=== PATIENT | female | born 1960 | race Caucasian/White ===

== ENCOUNTER 2019-09-07 08:51 | Emergency (ER) | payer OTHER ==
[~2019-09-07] VITALS: Ht 175.3 cm; Wt 61.2 kg
--- OUTSIDE RECORDS SUMMARY | ~2019-09-07 | XMS | Clinical Summary ---
Demographics + + + | Address | [address] | | | [place] [address] | + + + | Home Phone | | + + + | Preferred Language | Unknown | + + + | Marital Status | | + + + | Temple Affiliation | Unknown | + + + | Race | Unknown | + + + | Ethnic Group | Unknown | + + + Author + + + | Author | [facility] | | | and [place] | + + + | Organization | [facility] | | | and [place] | + + + | Address | Unknown | + + + | Phone | Unavailable | + + + Support + + +---------+ + | Name | Relationship | Address | Phone | + + +---------+ + | Nitesh Chilel | ECON | Unknown | | + + +---------+ + | Chelsea Chan | ECON | Unknown | | + + +---------+ + | Corina Loucontreras | ECON | Unknown | | + + +---------+ + | Slim Delong | ECON | Unknown | | + + +---------+ + Care Team Providers + +------+ + | Care Product Safety Expert Name | Role | Phone | + +------+ + | Yasmin Perry MD | PCP | | + +------+ + Allergies + + + +--------+ + | Active Allergy | Reactions | Severity | Noted | Comments | | | | | Date | | + + + +--------+ + | Hydrocodone-Acetamin | | | | Other reaction(s): | | ophen | | | | constipation, | | | | | | nausea | + + + +--------+ + | Morphine | | | | Other reaction(s): | | | | | | nausea, | | | | | | constipation | + + + +--------+ + | Topiramate | | | | Other reaction(s): | | | | | | insomnia, weight | | | | | | loss | + + + +--------+ + Medications + + + +---------+------+------+-------+ | Medication | Sig | Dispensed | Refills | Star | End | Statu | | | | | | t | Date | s | | | | | | Date | | | + + + +---------+------+------+-------+ | traZODone | Take 50 mg by mouth | | 0 | 09/1 | | Activ | | (DESYREL) 50 mg | nightly. | | | 3/20 | | e | | tablet | | | | 12 | | | + + + +---------+------+------+-------+ | | Take 1 to 2 tablets | | 0 | 09/1 | | Activ | | HYDROcodone-acetamin | by mouth every 4 | | | 3/20 | | e | | ophen (NORCO) 5-325 | hours as needed for | | | 12 | | | | mg per tablet | pain | | | | | | + + + +---------+------+------+-------+ | cyclobenzaprine | Take 10 mg by mouth | | 0 | 06/08 | | Activ | | (FLEXERIL) 10 mg | every 8 hours as | | | 12/25 | | e | | tablet | needed. | | | 12 | | | + + + +---------+------+------+-------+ | Calcium | Take by mouth. | | 0 | /0 | | Activ | | Carbonate-Vit D-Min | | | | 03/27 | | e | | (CALCIUM 1200 PO) | | | | 13 | | | + + + +---------+------+------+-------+ | levothyroxine | take 1 tablet by | | 0 | 07/08 | | Activ | | (SYNTHROID) 100 mcg | mouth once daily | | | 05/27 | | e | | tablet | | | | 17 | | | + + + +---------+------+------+-------+ | | take 1 tablet by | | 0 | 09/09 | | Activ | | sulfamethoxazole-tri | mouth twice a day | | | 10/27 | | e | | methoprim (BACTRIM | | | | 17 | | | | DS) 800-160 mg per | | | | | | | | tablet | | | | | | | + + + +---------+------+------+-------+ Active Problems + + + | Problem | Noted Date | + + + | Chronic pelvic pain in female | 03/13/2013 | + + + | Hypothyroid | 03/13/2013 | + + + | Primary hypothyroidism | 08/01/2012 | + + + + + | Overview: Overview: Primary hypothyroidism. Most likely | | Daphne's thyroiditis. This was first diagnosed in 08/15. | | Initial symptoms included fatigue. Results of initial laboratory | | tests are not known. A thyroid ultrasound demonstrated | | heterogeneous normal sized gland and no identifiable nodule in | | 11/2009. She is currently taking Synthroid 75 mcg daily. She has | | taken this dosage since 07/22/09. She takes this thyroid | | medication regularly, in the morning, around 6 AM, on empty | | stomach, separate from other interfering medications.She reports | | no symptoms suggestive of adverse medication effect. She is | | currently asymptomatic. Primary hypothyroidism. Daphne's | | thyroiditis. Clinically euthyroid. Appropriate TSH as of | | 07/25/12 (2.58). MEDICATIONS: Continue current treatment. FU | | PCP and return as needed | |FU PCP and return as needed | + + + + + | Vitamin D deficiency | 08/01/2012 | + + + + + | Overview: Overview: This was first diagnosed in 07/16. She | | was given vitamin D 50,000 IU weekly x 4 weeks then vitamin D | | 2000 IU daily in 07/2009. Current medications include vitamin D | | 2000 units daily. She has occasional leg cramps. She is now off | | many pain pills and is trying to exercise regularly.She has | | experienced no treatment side effects. The levels are low normal | | (33 as of 07/25/12). I suggest ~ 50 ng/dLMEDICATIONS: Increase | | vitamin D to 5000 units daily throughout the winter then, again | | decreased to 2000 units daily in February 2013, for the | | summertime.Plan to followup with PCP for vitamin D/hypothyroidism | |Plan to followup with PCP for vitamin D/hypothyroidism | + + + + + | Incontinence | 05/23/2012 | + + + | Insomnia | | + + + | Irritable bowel syndrome | | + + + Family History + + +------+ + | Medical History | Relation | Name | Comments | + + +------+ + | Cancer | Father | | Lung | + + +------+ + | Cancer | Paternal | | | | | Aunt | | | + + +------+ + + +------+--------+ + | Relation | Name | Status | Comments | + +------+--------+ + | Father | | | | + +------+--------+ + | Paternal Aunt | | | | + +------+--------+ + Social History + +-------+ +--------+------+ | Tobacco Use | Types | Packs/Day | Years | Date | | | | | Used | | + +-------+ +--------+------+ | Never Smoker | | | | | + +-------+ +--------+------+ + +---+---+---+ | Smokeless Tobacco: | | | | | Never Used | | | | + +---+---+---+ + + + | Sex Assigned at | Date Recorded | | | | + + + | Not on file | | + + + + + + + | Job Start Date | Occupation | Industry | + + + + | Not on file | Not on file | Not on file | + + + + + + + + | Travel History | Travel Start | Travel End | + + + + + + | No recent travel history available. | + + Last Filed Vital Signs + + + + + | Vital Sign | Reading | Time Taken | Comments | + + + + + | Blood Pressure | 90/58 | 11/08/2017 1:53 PM | | | | | PST | | + + + + + | Pulse | 71 | 11/08/2017 1:53 PM | | | | | PST | | + + + + + | Temperature | 36.7 C (98.1 F) | 03/09/2014 3:13 PM | | | | | PDT | | + + + + + | Respiratory Rate | 16 | 11/08/2017 1:53 PM | | | | | PST | | + + + + + | Oxygen Saturation | 99% | 11/08/2017 1:53 PM | | | | | PST | | + + + + + | Inhaled Oxygen | - | - | | | Concentration | | | | + + + + + | Weight | 63.5 kg (140 lb) | 11/08/2017 1:53 PM | | | | | PST | | + + + + + | Height | 175.3 cm (5' 9") | 11/08/2017 1:53 PM | | | | | PST | | + + + + + | Body Mass Index | 20.67 | 11/08/2017 1:53 PM | | | | | PST | | + + + + + Plan of Treatment + + + + + | Health Maintenance | Due Date | Last Done | Comments | + + + + + | Hepatitis C | | | | | Screening | 0 | | | + + + + + | Vaccine: | | | | | Dtap/Tdap/Td (1 - | 9 | | | | Tdap) | | | | + + + + + | Cervical Cancer | | | | | Screening (Pap) | 0 | | | + + + + + | Colorectal Cancer | | | | | Screening | 0 | | | | (Colonoscopy) | | | | + + + + + | Vaccine: Zoster (1 | | | | | of 2) | 0 | | | + + + + + | Breast Cancer | | | | | Screening | 5 | | | + + + + + | Vaccine: Influenza | | | | | (#1) | 9 | | | + + + + + Results Not on filefrom Last 3 Months Insurance +-------+--------+ +--------+ + +------+ | Payer | Benefi | Subscriber | Effect | Phone | Address | Type | | | t Plan | ID | roseann | | | | | | / | | Dates | | | | | | Group | | | | | | +-------+--------+ +--------+ + +------+ | MODA | MODA | [id number] | 10/08/19 | [phone] | [address] | PPO | | | [place] | | 14-Pre | [phone] | | | | [place] | | sent | | [place], | | | | [place] | | | | [place] [address] | | +-------+--------+ +--------+ + +------+ | MODA | MODA | [id number] | | [phone] | [address] | PPO | | | [employer] | | 019-Pr | [phone] | [phone] | | | | [place] | | esent | | [place], | | | | [place] | | | | [place] [address] | | +-------+--------+ +--------+ + +------+ + +--------+ +--------+ + + | Guarantor Name | Accoun | Relation to | Date | Phone | Billing Address | | | t Type | Patient | of | | | | | | | | | | + +--------+ +--------+ + + | Olesya Chilel | Person | Self [birth year] | [address] | | | al/Fam | | 1961 | [phone] | [place] [address] | | | sunday | | | 1 (Home) | | + +--------+ +--------+ + + | Olesya Chilel | Person | Self [birth year] | [address] | | | al/Fam | | 1961 | [phone] | [place] [address] | | | sunday | | | 1 (Home) | | + +--------+ +--------+ + + Advance Directives + + + + + | Type | Date Recorded | Patient | Explanation | | | | Ergonomics Technician | | + + + + + | Power of | | | | | Procurement Intern | | | | + + + + + | Advance | | | | | Directive | | | | + + + + +
--- OUTSIDE RECORDS SUMMARY | ~2019-09-07 | XMS | Encounter Summary ---
Demographics + + + | Address | [address] | | | [place] [address] | + + + | Home Phone | | + + + | Preferred Language | Unknown | + + + | Marital Status | | + + + | Mandaeism Affiliation | Unknown | + + + | Race | Unknown | + + + | Ethnic Group | Unknown | + + + Author + + + | Author | and Services [facility] | | | and [place] | + + + | Organization | and [facility] | | | and [place] | [...] | + + +---------+ + | Corina Loaiza | ECON | Unknown | | + + +---------+ + | Slim Delong | ECON | Unknown | | + + +---------+ + Care Team Providers + +------+ + | Care Assessment Coordinator Name | Role | Phone | + +------+ + | Agapito Clemente MD | PCP | | + +------+ + Encounter Details +--------+ + + + + | Date | Type | Department | Care Team | Description | +--------+ + + + + | 11/11/ | Hospital | [facility] | [place] | | | 2014 | Encounter | H[facility] XRAY [address] | [address] | | | | | [address] | [facility] [facility], | | | | | [place] | [place] [address] | | | | | [address] | [phone] | | | | | [phone] | | | +--------+ + + + + Social History + +-------+ +--------+------+ | Tobacco Use | Types | Packs/Day | Years | Date | | | | | Used | | + +-------+ +--------+------+ | Never Assessed | | | | | + +-------+ +--------+------+ + + + | Sex Assigned at [...] recent travel history available. | + + documented as of this encounter Medications at Time of Discharge + + + +---------+ + + | Medication | Sig | Dispensed | Refills | Start | End Date | | | | | | Date | | + + + +---------+ + + | Calcium | Take by mouth. | | 0 | 03/13/20 | | | Carbonate-Vit D-Min | | | | 13 | | | (CALCIUM 1200 PO) | | | | | | + + + +---------+ + + | cyclobenzaprine | Take 10 mg by mouth | | 0 | 06/20/20 | | | (FLEXERIL) 10 mg | every 8 hours as | | | 12 | | | tablet | needed. | | | | | + + + +---------+ + + | | Take 1 to 2 tablets | | 0 | 06/20/20 | | | HYDROcodone-acetamin | by mouth every 4 | | | 12 | | | ophen (NORCO) 5-325 | hours as needed for | | | | | | mg per tablet | pain | | | | | + + + +---------+ + + | traZODone | Take 50 mg by mouth | | 0 | 06/20/20 | | | (DESYREL) 50 mg | nightly. | | | 12 | | | tablet | | | | | | + + + +---------+ + + documented as of this encounter Plan of Treatment Not on filedocumented as of this encounter Visit Diagnoses Not on filedocumented in this encounter"
--- OUTSIDE RECORDS SUMMARY | ~2019-09-07 | XMS | Encounter Summary ---
Demographics + + + | Address | [address] | | | [place] [address] | + + + | Home Phone | | + + + | Preferred Language | Unknown | + + + | Marital Status | | + + + | Anglican Affiliation | Unknown | + + + | Race | Unknown | + + + | Ethnic Group | Unknown | + + + Author + + + | Author | [facility] | | | and [place] | + + + | Organization | [facility] | | | and [place] | [...] Team Providers + +------+ + | Care Watch Crystal Molder Name | Role | Phone | + +------+ + | Agapito Clemente MD | PCP | | + +------+ + Reason for Visit + + + | Reason | Comments | + + + | Appointment | | + + + Encounter Details +--------+ + + + + | Date | Type | Department | Care Team | Description | +--------+ + + + + | 11/14/ | Telephone | [facility] | Eb Garcias MD | Appointment | | 2013 | | NEUR[address]UR[address]ERY [address] | [address] | | | | | [address] | [place] [address] | | | | | [place] | [phone] | | | | | [address] | | | | | | [phone] | | | +--------+ + + + [...]
--- OUTSIDE RECORDS SUMMARY | ~2019-09-07 | XMS | Clinical Summary ---
Demographics + + + | Address | [address] | | | [place] [address] | + + + | Home Phone | | + + + | Preferred Language | Unknown | + + + | Marital Status | | + + + | Denominational Affiliation | Unknown | + + + | Race | Unknown | + + + | Ethnic Group | Unknown | + + + Author + + + | Author | [facility] (Historical as of | | | 05-24-19) | + + + | Organization | [facility] (Historical as of | | | 05-24-19) | + + + | Address | Unknown | + + + | Phone | Unavailable | + + + Support + + + + + | Name | Relationship | Address | Phone | + + + + + | Claudio Chilel | ECON | [address] | | | | | [place], [place] | | | | | [address] | | + + + + + Care Team Providers + +------+ + | Care Seal Delivery Vehicle Officer Name | Role | Phone | + +------+ + | Dr. Marvin | PP | Unavailable | + +------+ + Allergies Not on File Current Medications Not on file Active Problems Not on file Social History + +-------+ +--------+------+ | Tobacco [...] on file | | + + + Plan of Treatment Not on file Results Not on filefrom Last 3 Months"
--- OUTSIDE RECORDS SUMMARY | ~2019-09-07 | XMS | Encounter Summary ---
Demographics + + + | Address | [address] | | | [place] [address] | + + + | Home Phone | | + + + | Preferred Language | Unknown | + + + | Marital Status | | + + + | Muslim Affiliation | Unknown | + + + | Race | White | + + + | Ethnic Group | Not or | + + + Author + + + | Author | [facility] | + + + | Organization | [facility] | + + + | Address | Unknown | + + + | Phone | Unavailable | + + + Support + + + + + | Name | Relationship | Address | Phone | + + + + + | Nitesh Chilel | ECON | [address] | | | | | [place], [place] | | | | | [address] | | + + + + + Care Team Providers + +------+ + | Care Human Resources Intern Name | Role | Phone | + +------+ + | Yasmin Perry MD | PCP | | + +------+ + Encounter Details +--------+ + + + + | Date | Type | Department | Care Team | Description | +--------+ + + + + | 01/25/ | Outside | UNKNOWN DEPARTMENT | Other, Faculty | | | 2016 | Records | [address] [facility] | [phone] | | | | | [address] | | | | | | [place], [place] | | | | | | [address] | | | +--------+ + + + [...]
--- OUTSIDE RECORDS SUMMARY | ~2019-09-07 | XMS | Encounter Summary ---
Demographics + + + | Address | [address] | | | [place] [address] | + + + | Home Phone | | + + + | Preferred Language | Unknown | + + + | Marital Status | | + + + | Adventism Affiliation | Unknown | + + + | Race | Unknown | + + + | Ethnic Group | Unknown | + + + Author + + + | Author | [facility] | | | and [place] | + + + | Organization | [facility] | | | and [place] [...] Team Providers + +------+ + | Care Director Style Name | Role | Phone | + [...] Encounter | HOSPITAL XRAY [address] | [address] | | | | | [address] | [facility], | | | | | [place] | [place] [address] | | | | | [address] | [phone] | | | | | [phone] | | | +--------+ + + + [...]
--- OUTSIDE RECORDS SUMMARY | ~2019-09-07 | XMS | Encounter Summary ---
Demographics + + + | Address | [address] | | | [place] [address] | + + + | Home Phone | | + + + | Preferred Language | Unknown | + + + | Marital Status | | + + + | Alevism Affiliation | Unknown | + + + | Race | Unknown | + + + | Ethnic Group | Unknown | + + + Author + + + | Author | [facility] | | | and [place] | + + + | Organization | [facility] | | | and [place] | [...] Team Providers + +------+ + | Care Secretary Book Keeper Name | Role | Phone | + +------+ + PCP | Unavailable | + +------+ + Encounter Details +--------+ + + + + | Date | Type | Department | Care Team | Description | +--------+ + + + + | 02/18/ | Hospital | [facility] | Jones Castellanos | | | 2006 - | Encounter | MED CTR OP REHAB | [address] | | | | | [address] [place] | [address] [place] | | | 03/07/ | | [place] [address] | [place] [address] | | | 2006 | | [phone] | [phone] | | | | | | | [...]
--- OUTSIDE RECORDS SUMMARY | ~2019-09-07 | XMS | Encounter Summary ---
Demographics + + + | Address | [address] | | | [place] [address] | + + + | Home Phone | | + + + | Preferred Language | Unknown | + + + | Marital Status | | + + + | Yazidism Affiliation | Unknown | + + + | Race | Unknown | + + + | Ethnic Group | Unknown | + + + Author + + + | Author | [facility] | | | and [place] | + + + | Organization | [facility] | | | and [place] [...] Team Providers + +------+ + | Care Remote Inpatient Coder Name | Role | Phone | + +------+ + PCP | Unavailable | + +------+ + Encounter Details +--------+ + + + + | Date | Type | Department | Care Team | Description | +--------+ + + + + | 06/20/ | Abstract | [facility] | [facility] MIGR[facility] | | | 2011 | | Conversion Location | [place] | | | | | [phone] | | | +--------+ + + + [...] + + documented as of this encounter Last Filed Vital Signs + +---------+ + + | Vital Sign | Reading | Time Taken | Comments | + +---------+ + + | Blood Pressure | 114/66 | 07/12/2011 12:00 AM | | | | | PDT | | + +---------+ + + | Pulse | - | - | | + +---------+ + + | Temperature | - | - | | + +---------+ + + | Respiratory Rate | - | - | | + +---------+ + + | Oxygen Saturation | - | - | | + +---------+ + + | Inhaled Oxygen | - | - | | | Concentration | | | | + +---------+ + + | Weight | - | - | | + +---------+ + + | Height | - | - | | + +---------+ + + | Body Mass Index | - | - | | + +---------+ + + documented in this encounter Plan of Treatment Not on filedocumented as of this encounter Visit Diagnoses Not on filedocumented in this encounter"
--- OUTSIDE RECORDS SUMMARY | ~2019-09-07 | XMS | Encounter Summary ---
Demographics + + + | Address | [address] | | | [place] [address] | + + + | Home Phone | | + + + | Preferred Language | Unknown | + + + | Marital Status | | + + + | Mandaeism Affiliation | Unknown | + + + | Race | Unknown | + + + | Ethnic Group | Unknown | + + + Author + + + | Author | [facility] | | | and [place] | + + + | Organization | [facility] | | | and [place] [...] Team Providers + +------+ + | Care Quality System Manager Name | Role | Phone | [...] | NEUROSUR[address]ERY [address] | [address] | | | | | [address] | [place] [address] | | | | | [place] | [phone] | | | | | [address] | | | | | | [phone] | | | +--------+ + + + [...]
--- OUTSIDE RECORDS SUMMARY | ~2019-09-07 | XMS | Encounter Summary ---
Demographics + + + | Address | [address] | | | [place] [address] | + + + | Home Phone | | + + + | Preferred Language | Unknown | + + + | Marital Status | | + + + | Mormon Affiliation | Unknown | + + + | Race | Unknown | + + + | Ethnic Group | Unknown | + + + Author + + + | Author | [facility] | | | and [place] | + + + | Organization | [facility] | | | and [place] [...] | | + + +---------+ + | Corian Loaiza | ECON | Unknown | | + + +---------+ + | Slim Delong | ECON | Unknown | | + + +---------+ + Care Team Providers + +------+ + | Care Hand Hide Stretcher Name | Role | Phone | + +------+ + | Yasmin Perry MD | PCP | | + +------+ + Reason for Visit + + + | Reason | Comments | + + + | Hematuria | | + + + Encounter Details +--------+ + + + + | Date | Type | Department | Care Team | Description | +--------+ + + + + | 11/08/ | Procedure | [facility] | Nikhil Del Rosario | Gross hematuria | | 2018 | visit | [facility] | MD [address] | (Primary Dx) | | | | [address] | [address] | | | | | [place], [place] | [place] [address] | | | | | [address] | [phone] | | | | | [phone] | | | +--------+ + + + [...] this encounter Last Filed Vital Signs + + + [...] + + + + | Temperature | - | - | | + + + + + [...] + + + documented in this encounter Progress Notes Nikhil Del Rosario MD - 11/08/2017 2:00 PM PSTFormatting of this note might be diff erent from the original. CURRENT COMPLAINT: Hematuria, gross HPI: The patient comes in today to consider undergoing cystoscopy. Patient has had episod es of gross hematuria. CT scan was done since her last visit here. No upper tract patholog y of note was noted. The patient has not had any further gross hematuria since last seen he re. The hematuria was intermittent previously. Discussion was held concerning the indications for cystoscopy and the risks, benefits, and alternatives of cystoscopy. Alternatives include doing nothing or seeking a second opinion. Risks include but are not limited to bleeding, pain, infection, failure of the procedure, ne ed for additional procedures, inherent risks of any surgical procedure. After discussion and consideration of the various options as well as the potential risks and benefits, the patie nt is agreeable to proceed, and accepts the risks associated. MEDICATIONS: Current Outpatient Prescriptions Medication Sig Dispense Refill Calcium Carbonate-Vit D-Min (CALCIUM 1200 PO) Take by mouth. cyclobenzaprine (FLEXERIL) 10 mg tablet Take 10 mg by mouth every 8 hours as needed. HYDROcodone-acetaminophen (NORCO) 5-325 mg per tablet Take 1 to 2 tablets by mouth ever y 4 hours as needed for pain levothyroxine (SYNTHROID) 100 mcg tablet take 1 tablet by mouth once daily 0 sulfamethoxazole-trimethoprim (BACTRIM DS) 800-160 mg per tablet take 1 tablet by mouth twice a day 0 traZODone (DESYREL) 50 mg tablet Take 50 mg by mouth nightly. No current facility-administered medications for this visit. ALLERGIES: Hydrocodone-acetaminophen; Morphine; and Topiramate PROBLEM LIST: Patient Active Problem List Diagnosis INSOMNIA IRRITABLE BOWEL SYNDROME PAST MEDICAL HISTORY: History reviewed. No pertinent past medical history. PAST SURGICAL HISTORY: Past Surgical History: Procedure Laterality Date OVARY REMOVAL TUBAL LIGATION FAMILY HISTORY: Family History Problem Relation Age of Onset Cancer Father Lung Cancer Paternal Aunt SOCIAL HISTORY: Social History Social History Marital status: Spouse name: N/A Number of children: N/A Years of education: N/A Occupational History Not on file. Social History Main Topics Smoking status: Never Smoker Smokeless tobacco: Never Used Alcohol use Not on file Drug use: Unknown Sexual activity: Not on file Other Topics Concern Not on file Social History Narrative No narrative on file ROS: ROS Review of Systems Constitutional: Positive for chills. Negative for fever, malaise/fatigue and weight loss. HENT: Negative for hearing loss. Eyes: Negative for blurred vision. Respiratory: Negative for cough and shortness of breath. Cardiovascular: Negative for chest pain, palpitations, orthopnea and leg swelling. Gastrointestinal: Negative for abdominal pain, constipation, diarrhea, nausea and vomiting. Genitourinary: Positive for dysuria, frequency, hematuria and urgency. Musculoskeletal: Positive for back pain and joint pain. Skin: Negative for rash. Neurological: Negative for dizziness, tingling, weakness and headaches. Psychiatric/Behavioral: Negative for depression. The patient is not nervous/anxious and melgoza s not have insomnia. PHYSICAL EXAM: Vital signs: BP 90/58 | Pulse 71 | Resp 16 | Ht 1.753 m (5' 9") | Wt 63.5 kg (140 lb) | SpO2 99% | BMI 20.67 kg/m Constitutional: Well-developed, well-nourished 56 y.o. female in no acute distress. Respiratory: Effort nl. Cardiovascular: No peripheral edema. Abdomen: No masses. No tenderness. Liver & spleen- no tenderness no CV angle tendernes s. Bladder is not distended on percussion or palpation. Stool sample: Not indicated PELVIC: External Genitalia: Normal in appearance. No inflammation, lesions, ulcerations, or m asses Urethral meatus and Urethra: Normal in size and location. No lesions or prolapse. No masses or tenderness Bladder: No masses, fullness, or tenderness Vagina: Mucosa normal. No discharge, lesions, cystocele, or rectocele Cervix: Surgically absent. Uterus: Surgically absent. Adnexae: Surgically absent. Normal anus, perineum Rectal: No external hemorrhoids Musculoskeletal: Normal gait and station. Neurologic: No tremor, paresi s evident Skin: Warm and dry,no erythematous rash. Psychiatric: Appropriate affect. Alert and oriented 3. Intact judgment and insight. DIAGNOSTICS: CYSTO: PAR was held. Informed consent was obtained. Timeout performed. The patient was p laced in lithotomy position, and the genitalia were prepped and draped in the standard fashi on. Viscous XYLOCAINE was used for local anesthesia. A 17 [place] scope was passed. The bl adder was inspected, and all areas were well visualized. The ureteral orifices were normal in anatomy and position. Clear efflux was noted bilaterally. No evidence of TCC, CIS, bladd er stones, trabeculation, inflammation, or other intravesical pathology was identified. The patient tolerated the procedure well. No complications were encountered. ASSESSMENT: Gross hematuria workup completed. No urologic pathology requiring further int ervention forthcoming. LABS, STUDIES ORDERED: See below DIAGNOSIS: Gross hematuria history PLAN/RECOMMENDATIONS: The patient will plan on returning to this clinic on a p.r.n. basis . This note was transcribed using voice recognition software; there may be speech recognition errors which escaped detection during proofreading. Cc: PRIMARY CARE PHYSICIAN: Yasmin Perry MD documented i n this encounter Plan of Treatment Not on filedocumented as of this encounter Visit Diagnoses + + | Diagnosis | + + | Gross hematuria - Primary | + + documented in this encounter Administered Medications + +--------+ +--------+------+------+ | Medication Order | MAR | Action | Dose | Rate | Site | | | Action | Date | | | | + +--------+ +--------+------+------+ | ciprofloxacin (CIPRO) tablet | Given | 11/08/19 | 500 mg | | | | 500 mg 500 mg, Oral, ONCE, Prema | | 18 4:13 | | | | | 11/08/17 at 1630, For 1 dose, Give | | PM PST | | | | | 2 hours before or 6 hours after | | | | | | | antacids, dairy, calcium, iron, | | | | | | | or zinc., Indications: | | | | | | | Prophylaxis | | | | | | + +--------+ +--------+------+------+ +---+---+ | | | +---+---+ documented in this encounter
--- OUTSIDE RECORDS SUMMARY | ~2019-09-07 | XMS | Clinical Summary ---
Demographics + + + | Address | [address] | | | [place] [address] | + + + | Home Phone | | + + + | Preferred Language | Unknown | + + + | Marital Status | | + + + | Roman Catholic Affiliation | Unknown | + + + | Race | White | + + + | Ethnic Group | Not or | + + + Author + + + | Author | [facility] | + + + | Organization | [facility] | + + + | Address | Unknown | + + + | Phone | Unavailable | + + + Support + + + + + | Name | Relationship | Address | Phone | + + + + + | Nitesh Chilel | ECON | [address] | | | | | [place], [place] | | | | | [address] | | + + + + + Care Team Providers + +------+ + | Care Doctor Assistant Name | Role | Phone | + +------+ + | Yasmin Perry MD | PCP | | + +------+ + Source Comments KEVIN is fully live on both [facility] and [facility] Allergies + + + +--------+ + | Active Allergy | Reactions | Severity | Noted | Comments | | | | | Date | | + + + +--------+ + | Hydrocodone-Acetamin | Nausea, Constipation | | | Other reaction(s): | | ophen | | | | constipation, | | | | | | nausea | + + + +--------+ + | Morphine | Nausea, Constipation | | | Other reaction(s): | | | | | | nausea, | | | | | | constipation | + + + +--------+ + | Topiramate | Insomnia | | | Other reaction(s): | | [...] | + + + +---------+------+------+-------+ | levothyroxine 100 | 100 mcg once daily. | | 0 | 10/1 | | Activ | | mcg oral tablet | | | | 2/20 | | e | | | | | | 18 | | | + + + +---------+------+------+-------+ | MEDICATION HELP | 1 tablet once daily | | 0 | | | Activ | | | in the morning. | | | | | e | | | [facility] | | | | | | + + + +---------+------+------+-------+ | calcium | Take 5,000 Int'l | | 0 | | | Activ | | carbonate/vitamin D3 | Units by mouth once | | | | | e | | (VITAMIN D-3 ORAL) | daily in the | | | | | | | | morning. | | | | | | + + + +---------+------+------+-------+ | calcium | Take 1,000 mg by | | 0 | | | Activ | | carbonate/vitamin D2 | mouth once daily in | | | | | e | | (LIQUID CALCIUM | the morning. | | | | | | | ORAL) | | | | | | | + + + +---------+------+------+-------+ | MAGNESIUM ORAL | Take 2,000 mg by | | 0 | | | Activ | | | mouth once daily at | | | | | e | | | bedtime. Neuro-mag | | | | | | + + + +---------+------+------+-------+ Active Problems + + + | Problem | Noted Date | + + + | Full incontinence of feces | 08/26/2018 | + + + Social History + +-------+ [...] + + + | Blood Pressure | 104/76 | 08/26/2018 10:55 AM | | | | | PST | | + + + + + | Pulse | 69 | 08/26/2018 10:55 AM | | | | | PST | | + + + + + | Temperature | 36.7 C (98 F) | 08/26/2018 10:55 AM | | | | | PST | | + + + + + | Respiratory Rate | - | - | | + + + + + | Oxygen Saturation | 99% | 08/26/2018 10:55 AM | | | | | PST | | + + + + + | Inhaled Oxygen | - | - | | | Concentration | | | | + + + + + | Weight | 63.4 kg (139 lb 11.2 | 08/26/2018 10:55 AM | | | | oz) | PST | | + + + + + | Height | 175.3 cm (5' 9") | 08/26/2018 10:55 AM | | | | | PST | | + + + + + | Body Mass Index | 20.63 | 08/26/2018 10:55 AM | | | | | PST | | + + + + + Plan of Treatment + + + + + | Health Maintenance | Due Date | Last Done | Comments | + + + + + | Influenza (Flu) | | 06/12/2017, 10/14/2013, | | | vaccination (#1) | 9 | 07/30/2012, Additional history | | | | | exists | | + + + + + | Pneumococcal | Aged Out | | No longer eligible | | vaccination | | | based on patient's | | | | | age to complete this | | | | | topic | + + + + + Results Not on filefrom Last 3 Months Insurance + +--------+ +--------+ + +------+ | Payer | Benefi | Subscriber | Effect | Phone | Address | Type | | | t Plan | ID | roseann | | | | | | / | | Dates | | | | | | Group | | | | | | + +--------+ +--------+ + +------+ | [employer] | MODA | [phone] | | [phone] | [address] | PPO | | | OEBB | | [phone] | [phone] | | | | [place] | | esent | | [place], | | | | [place] | | | | [place] [address] | | + +--------+ +--------+ + +------+ + +--------+ +--------+ + + | Guarantor Name | Accoun | Relation to | Date | Phone | Billing Address | | | t Type | Patient | of | | | | | | | | | | + +--------+ +--------+ + + | Olesya Chilel | Person | Self [birth year] | [address] | | | al/Fam | | 1961 | [phone] | [place] | | | sunday | | | 1 (Home) | [address] | + +--------+ +--------+ + +
--- OUTSIDE RECORDS SUMMARY | ~2019-09-07 | XMS | Encounter Summary ---
Demographics + + + | Address | [address] | | | [place] [address] | + + + | Home Phone | | + + + | Preferred Language | Unknown | + + + | Marital Status | | + + + | Pentecostal Affiliation | Unknown | + + + | Race | White | + + + | Ethnic Group | Not or | + + + Author + + + | Author | [facility] | + + + | Organization | [facility] | + + + | Address | Unknown | + + + | Phone | Unavailable | + + + Support + + + + + | Name | Relationship | Address | Phone | + + + + + | Nitesh Chilel | ECON | [address] | | | | | [place], [place] | | | | | [address] | | + + + + + Care Team Providers + +------+ + | Care Ward Service Supervisor Name | Role | Phone | + [...] [address] | | | | | | [place], [place] | | | | | | [id number] | | | | | | | [...] | DERMATOPATH | | | MNT) | [address] CLIN[address] | | OLOGY | | | | DESCRIPTION:Shave, lt. | | | | | | [...] specimen. | | | | | | VBK/[id number]:[id number] | | | | | | Case [...] Herrmann | | | | | | Mikeyi | | | | | | krzysztof Signed 09/07/2010 | | | | + + + + + + + + | Specimen | + + | | + + + + + + + | Performing | Address | City/State/Zipcode | Phone Number | | Organization | | | | + + + + + | [facility] | [address], [address] | [place] [address] | | | DERMATOPATHOLOGY | [address] | | | + + + + + documented in this encounter Visit Diagnoses Not on filedocumented in this encounter"
--- OUTSIDE RECORDS SUMMARY | ~2019-09-07 | XMS | Encounter Summary ---
Demographics + + + | Address | [address] | | | [place] [address] | + + + | Home Phone | | + + + | Preferred Language | Unknown | + + + | Marital Status | | + + + | Quaker Affiliation | Unknown | + + + | Race | White | + + + | Ethnic Group | Not or | + + + Author + + + | Author | [facility] | + + + | Organization | [facility] | + + + | Address | Unknown | + + + | Phone | Unavailable | + + + Support + + + + + | Name | Relationship | Address | Phone | + + + + + | Nitesh Chilel | ECON | [address] | | | | | [place], [place] | | | | | [address] | | + + + + + Care Team Providers + +------+ + | Care Buggy Operator Name | Role | Phone | + [...] [address] | | | | | | [place], [place] | | | | | | [id number] | | | | | | | [...] | DERMATOPATH | | | MNT) | [address] CLIN[address] | | OLOGY | | | [...] [facility] | [address], [address] | [place] [address] | | | DERMATOPATHOLOGY | [address] | | | + + + + + documented in this encounter Visit Diagnoses Not on filedocumented in this encounter"
--- OUTSIDE RECORDS SUMMARY | ~2019-09-07 | XMS | Encounter Summary ---
Demographics + + + | Address | [address] | | | [place] [address] | + + + | Home Phone | | + + + | Preferred Language | Unknown | + + + | Marital Status | | + + + | Denominational Affiliation | Unknown | + + + | Race | White | + + + | Ethnic Group | Not or | + + + Author + + + | Author | [facility] | + + + | Organization | [facility] | + + + | Address | Unknown | + + + | Phone | Unavailable | + + + Support + + + + + | Name | Relationship | Address | Phone | + + + + + | Nitesh Chilel | ECON | [address] | | | | | [place], [place] | | | | | [address] | | + + + + + Care Team Providers + +------+ + | Care Franchise Sales Representative Name | Role | Phone | + +------+ + PCP | Unavailable | + +------+ + Encounter Details +--------+ + + + + | Date | Type | Department | Care Team | Description | +--------+ + + + + | 05/28/ | Abstract | Pulmonary & | Service, Pulmonary | | | 2017 | | Critical Care | Consult [address] | | | | | Medicine at | [address] | | | | | [facility] | Road [place], [place] | | | | | [address] | [address] | | | | | Celeste Elkins Mailcode: | | | | | | [id number] | | | | | | [address] | | | | | | [place], [place] | | | | | | [address] | | | | | | [phone] | | | +--------+ + + + [...]
--- OUTSIDE RECORDS SUMMARY | ~2019-09-07 | XMS | Encounter Summary ---
Demographics + + + | Address | [address] | | | [place] [address] | + + + | Home Phone | | + + + | Preferred Language | Unknown | + + + | Marital Status | | + + + | Confucianist Affiliation | Unknown | + + + | Race | Unknown | + + + | Ethnic Group | Unknown | + + + Author + + + | Author | [facility] | | | and [place] | + + + | Organization | [facility] | | | and [place] | [...] Team Providers + +------+ + | Care Operations Analyst Name | Role | Phone | + [...] | SR | | | | | [phone] | | | +--------+ + + + [...]
--- OUTSIDE RECORDS SUMMARY | ~2019-09-07 | XMS | Encounter Summary ---
Demographics + + + | Address | [address] | | | [place] [address] | + + + | Home Phone | | + + + | Preferred Language | Unknown | + + + | Marital Status | | + + + | Taoism Affiliation | Unknown | + + + | Race | White | + + + | Ethnic Group | Not or | + + + Author + + + | Author | [facility] | + + + | Organization | [facility] | + + + | Address | Unknown | + + + | Phone | Unavailable | + + + Support + + + + + | Name | Relationship | Address | Phone | + + + + + | Nitesh Chilel | ECON | [address] | | | | | [place], [place] | | | | | [address] | | + + + + + Care Team Providers + +------+ + | Care Security Installation Sales Technician Name | Role | Phone | + [...] Gynecology | Full | Lohith | [address] | | | | | incontinence | MD Amalia | [address] | | | | | of feces | [address] | | | | | Procedures | [address] | [place] | | | | | [place] NEW | [place], | Pavilion | | | | | PATIENT | [place] [address] | [place], [place] | | | | | [place] | Phone: | [address] | | | | | EST PATIENT | [phone] | Phone: | | | | | L[place] | Fax: | [phone] | | | | | | [phone] | Fax: | | | | | | | [phone] | +--------+--------+ + + + + Encounter Details +--------+---------+ + + + | Date | Type | Department | Care Team | Description | +--------+---------+ + + + | 08/26/ | [facility] | Tuan Renee, | Full incontinence of | | 2018 | Visit | [facility] [place] | [address] | feces (Primary Dx) | | | | [address] | [address] | | | | | [address] | [place], [place] | | | | | [facility] | [address] | | | | | [place], [place] | [phone] | | | | | [address] | | | | | | [phone] | | | +--------+---------+ + + + [...] She has seen Dr Adilson Leal in [place], [place] who recommended conservative management with immodium [...] on the patient intake questionnaire (scanned into [employer]) and with the patient. The summary is [...] be found in the scanned documents in [employer]. They have also been entered into rele [employer]rew[employer] of the [employer] database. PHYSICAL EXAM Last Vitals: BP 104/76 [...] Images obtained can be found in the [employer] Ta b. The findings are summarized below. EQUIPMENT USED: BK Leopard/1850 probe ANAL US FINDINGS UPPER IAS: Intact [...] care here or with Dr Leal in [place]. We have provided her with this information and she was grateful for the consult. Will return to clinic as needed. Patient seen, examined, and discussed with Dr Renee. David Andrews MD, FPMRS Fellow Tuan Mayer MD - 08/26/2018 11:15 [...]
--- OUTSIDE RECORDS SUMMARY | ~2019-09-07 | XMS | Encounter Summary ---
Demographics + + + | Address | [address] | | | [place] [address] | + + + | Home Phone | | + + + | Preferred Language | Unknown | + + + | Marital Status | | + + + | Anabaptism Affiliation | Unknown | + + + | Race | White | + + + | Ethnic Group | Not or | + + + Author + + + | Author | [facility] | + + + | Organization | [facility] | + + + | Address | Unknown | + + + | Phone | Unavailable | + + + Support + + + + + | Name | Relationship | Address | Phone | + + + + + | Nitesh Chilel | ECON | [address] | | | | | [place], [place] | | | | | [address] | | + + + + + Care Team Providers + +------+ + | Care Strand Buncher Fine Wire Name | Role | Phone | + [...] | Jose | | | | | [place] | [place], | Pavilion | | | | | PATIENT | [place] [address] | [place], [place] | | | | | [place] | Phone: | [phone] | | | | | EST PATIENT | [phone] | Phone: | | | | | L[place] | Fax: | [phone] | | | | | | [phone] | Fax: | | | | | | | [phone] | +--------+--------+ + + + + Encounter Details +--------+---------+ + + + | Date | Type | Department | Care Team | Description | +--------+---------+ + + + | 08/26/ | Office | [facility] | Tuan Renee, | Full incontinence of | | 2018 | Visit | [facility] [place] | [address] | feces (Primary Dx) | | | | [address] | [address] | | | | | [address] | [place], [place] | | | | | [facility] | [address] | | | | | [place], [place] | [phone] | | | | | [address] | | | | | | [phone] | | | +--------+---------+ + + + [...] She has seen Dr Adilson Leal in [place], [place] who recommended conservative management with immodium [...] on the patient intake questionnaire (scanned into [employer]) and with the patient. The summary is [...] be found in the scanned documents in [employer]. They have also been entered into rele [employer]rew[employer] of the [employer] database. PHYSICAL EXAM Last Vitals: BP 104/76 [...] Images obtained can be found in the [employer] Ta b. The findings are summarized [...] care here or with Dr Leal in [place]. We have provided her with this information [...]
--- OUTSIDE RECORDS SUMMARY | ~2019-09-07 | XMS | Encounter Summary ---
Demographics + + + | Address | [address] | | | [place] [address] | + + + | Home Phone | | + + + | Preferred Language | Unknown | + + + | Marital Status | | + + + | Mu-Ism Affiliation | Unknown | + + + | Race | Unknown | + + + | Ethnic Group | Unknown | + + + Author + + + | Author | [facility] | | | and [place] | + + + | Organization | [facility] | | | and [...] Team Providers + +------+ + | Care Hospital Insurance Representative Name | Role | Phone | + +------+ + | Agapito Clemente MD | PCP | | + +------+ + Encounter Details +--------+ + + + + | Date | Type | Department | Care Team | Description | +--------+ + + + + | 03/09/ | [facility] | [place] | | | 2013 | Encounter | [facility] | [address] | | | | | [facility] [address] | [address] [place] [address], | | | | | [address] [place] [address], | [place] [address] | | | | | [place] [address] | [phone] | | | | | [phone] | | | +--------+ + + + [...]
--- OUTSIDE RECORDS SUMMARY | ~2019-09-07 | XMS | Encounter Summary ---
Demographics + + + | Address | [address] | | | [place] [address] | + + + | Home Phone | | + + + | Preferred Language | Unknown | + + + | Marital Status | | + + + | Yarsani Affiliation | Unknown | + + + | Race | Unknown | + + + | Ethnic Group | Unknown | + + + Author + + + | Author | [facility] | | | and [place] | + + + | Organization | [facility] | | | and [place] | [...] Team Providers + +------+ + | Care Chuck Wagon Cook Name | Role | Phone | + +------+ + PCP | Unavailable | + +------+ + Encounter Details +--------+ + + + + | Date | Type | Department | Care Team | Description | +--------+ + + + + | 03/08/ | Hospital | [facility] | Jones Castellanos | | | 2006 - | Encounter | [facility] | [address] | | | | | [address] [place] | [place] [address] [place] | | | 04/06/ | | [place] [address] | [place] [address] | | | 2006 | | [phone] | [phone] | | | | | | | [...]
--- OUTSIDE RECORDS SUMMARY | ~2019-09-07 | XMS | Encounter Summary ---
Demographics + + + | Address | [address] | | | [place] [address] | + + + | Home Phone | | + + + | Preferred Language | Unknown | + + + | Marital Status | | + + + | Evangelical Affiliation | Unknown | + + + | Race | Unknown | + + + | Ethnic Group | Unknown | + + + Author + + + | Author | [facility] | | | and [place] | + + + | Organization | [facility] | [...] | + + +---------+ + | Corina Loucnotreras | ECON | Unknown | | + + +---------+ + | Slim Delong | ECON | Unknown | | + + +---------+ + Care Team Providers + +------+ + | Care Recruitment Assistant Name | Role | Phone | + +------+ + | Yasmin Perry MD | PCP | | + +------+ + Reason for Visit + + + | Reason | Comments | + + + | Hematuria | | + + + | Urinary Frequency | | + + + Encounter Details +--------+---------+ + + + | Date | Type | Department | Care Team | Description | +--------+---------+ + + + | 10/15/ | Office | [facility] | Nikhil Del Rosario | Gross hematuria | | 2018 | Visit | [facility] | MD [address] | (Primary Dx) | | | | [address] | [address] | | | | | [place] | [place], [place] [address] | | | | | [address] | [phone] | | | | | [phone] | | | +--------+---------+ + + + [...] + + + | Blood Pressure | 111/70 | 10/15/2017 9:16 AM | | | | | PST | | + + + + + | Pulse | 66 | 10/15/2017 9:16 AM | | | | | PST | | + + + + + | Temperature | - | - | | + + + + + | Respiratory Rate | 16 | 10/15/2017 9:16 AM | | | | | PST | | + + + + + | Oxygen Saturation | 100% | 10/15/2017 9:16 AM | | | | | PST | | + + + + + | Inhaled Oxygen | - | - | | | Concentration | | | | + + + + + | Weight | 63.5 kg (140 lb) | 10/15/2017 9:16 AM | | | | | PST | | + + + + + | Height | 175.3 cm (5' 9") | 10/15/2017 9:16 AM | | | | | PST | | + + + + + | Body Mass Index | 20.67 | 10/15/2017 9:16 AM | | | | | PST | | + + + + + documented in this encounter Progress Notes Nikhil Del Rosario MD - 10/15/2017 9:30 AM PSTFormatting of this note might be diff erent from the original. CURRENT COMPLAINT: Gross hematuria HPI: This is a 56-year-old female who comes in today accompanied by her . The [facility] is referred by her PCP, Dr. Perry, over in [place] where the patient lives. [facility] documentation was reviewed. History was from the patient and also. A week ago yesterday, the patient developed irritative voiding symptoms, with dysuria, freq uency, urgency. Also had gross hematuria and/or blood on the bathroom tissue. The patient was seen at Urgent Care over in [place]. By report, the urine culture was negative. The patient had been started on 3 days of Bactrim. She reports that her irritative voiding symp toms did not go away, but got perhaps 50% better. Since the urine culture was not positive, antibiotics were not continued. The patient also has a problem with fecal incontinence for the last 6 months or more, espec ially with family stress situations. The patient also has undergone pelvic floor therapy, a nd has even gone to [place] a couple of times for treatment there. The patient was give n some oxybutynin 5 mg twice a day which she took for a couple of days and it did help with her frequency and urgency, but she quit taking a couple of days because of something she judy d on the pharmacy handout. The patient also has a long-standing history of episodes of infr equent voiding, decreased sensation of bladder filling when she is in a stressful situation. 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 MEDICATIONS: Current Outpatient Prescriptions Medication Sig Dispense Refill Calcium Carbonate-Vit D-Min (CALCIUM 1200 PO) Take by mouth. ciprofloxacin (CIPRO) 500 mg tablet Take 1 tablet by mouth 2 times daily for 7 days. 14 tablet 0 cyclobenzaprine (FLEXERIL) 10 mg tablet Take 10 mg by mouth every 8 hours as needed. (P atient not taking: Reported on 10/15/2017) HYDROcodone-acetaminophen (NORCO) 5-325 mg per tablet Take 1 to 2 tablets by mouth ever y 4 hours as needed for pain (Patient not taking: Reported on 10/15/2017) levothyroxine (SYNTHROID) 100 mcg tablet take 1 tablet by mouth once daily 0 sulfamethoxazole-trimethoprim (BACTRIM DS) 800-160 mg per tablet take 1 tablet by mouth twice a day 0 traZODone (DESYREL) 50 mg tablet Take 50 mg by mouth nightly. (Patient not taking: Repo rted on 10/15/2017) No current facility-administered medications for this visit. [...] History Narrative No narrative on file ROS: Review of Systems Constitutional: Positive for chills. [...] have insomnia. PHYSICAL EXAM: Vital signs: BP 111/70 | Pulse 66 | Resp 16 | Ht 1.753 m (5' 9") | Wt 63.5 kg (140 lb ) | SpO2 100% | BMI 20.67 kg/m Constitutional: Well-developed, well-nourished 56 y.o. female in no acute distress. Neck: Symmetric. Trachea midline. No masses. Thyroid- no enlargement or tenderness. No carotid bruits. Respiratory: Effort nl. No intercostal retractions. Auscultation- clear Cardiovascular: RRR, no murmurs. Peripheral pulses nl. No edema or varicosities Abdomen: No masses or hernia. Diffuse abdominal tenderness with palpation. Liver & sple en- no enlargement or masses. No CV angle tenderness. Bladder is not distended on percussi on or palpation. Somewhat tender on bimanual Stool sample: Not indicated PELVIC: External Genitalia: [...] Normal anus, perineum Rectal: No external hemorrhoids or rectal masses Lymphatic: Neck and inguinal lymph nodes normal Skin: Skin: Warm and dry, no erythematous rash. Psychiatric: Alert and oriented 3. Anxious affect 19726 PELVIC ULTRASOUND, LIMITED: Using a [employer] Nemio XG unit, and a 3.75 MHz probe, the dania rae was scanned in transverse and longitudinal planes. Post void residual was 122 mls. No gregg ors, stones, diverticuli were identified. Bladder wall appeared unremarkable. No other kalia dence of pelvic pathology was identified. ASSESSMENT: Discussion was held with the patient and her at length concerning he r bladder symptoms. In general, she does not report typical interstitial cystitis type symp toms at all, her bladder being generally asymptomatic up until a week ago. She had some blo od in the urine or blood on the toilet tissue. Could've had some urethritis or other such i nfection that did not show up on urine culture. Because of her symptom complex and the fact that she did get some relief after a few days of Bactrim, I think it would be reasonable to empirically get her started on Cipro for a week. Patient's agreeable. Urine will be cultu red again today for completeness sake. We discussed workup for hematuria. Discussed upper tract imaging studies and cystoscopy. Patient wishes to proceed with workup. We also discussed her chronic although intermittent bladder symptoms which sound like they could be psychologically triggered, but her postvoid residual today is objectively elevated. We discussed doing a CMG at some point in the future after her current bladder dysfunction , whatever it might be from, has resolved. After discussion and consideration of the various options as well as the potential risks an d benefits, the patient is agreeable to proceed, and accepts the risks associated. LABS, STUDIES ORDERED: See below DIAGNOSIS: Hematuria, incomplete bladder emptying PLAN: CT abdomen, pelvis. Cystoscopy in office after. Cipro 500 mg twice a day for a w [place]. Urine culture pending. Eventual CMG This note was transcribed using voice recognition [...] | + +--------+ + + + | CULTURE, URINE | Routin | 10/15/2017 | Gross hematuria | Results for this | | | e | 9:30 AM | | procedure are in the | | | | PST | | results section. | + +--------+ + + + documented in this encounter Results Culture, Urine (10/15/2017 9:30 AM PST) + + + + + + | Component | Value | Ref Range | Performed | Pathologist | | | | | At | Signature | + + + + + + | Culture | 20,000 - 30,000 CFU/ml | | [facility] | | | | Mixed max (multiple | | [facility] | | | | morphologies | | [facility] | | | | present)Comment: | | LABORATORY | | | | Suggests contamination | | | | | | with urogenital or skin | | | | | | max. | | | | + + + + + + + + | Specimen | + + | Urine - Spot urine | | sample (specimen) | + + + + + + + | Performing | Address | City/State/Zipcode | Phone Number | | Organization | | | | + + + + + | [facility] | [address] | [place] [address] | [phone] | | [facility] | | | | + + + + + documented in this encounter Visit Diagnoses + + | Diagnosis | + + | Gross hematuria - Primary | + + documented in this encounter
--- OUTSIDE RECORDS SUMMARY | ~2019-09-07 | XMS | Encounter Summary ---
Demographics + + + | Address | [address] | | | [place] [address] | + + + | Home Phone [...] | Organization | [facility] | | | and [place] | [...] Team Providers + +------+ + | Care Manager Reading Name | Role | Phone | + +------+ + | Agapito Clemente MD | PCP | | + +------+ + Encounter Details +--------+ + + + + | Date | Type | Department | Care Team | Description | +--------+ + + + + | 03/09/ | Hospital [facility] | [place] | | | 2013 | Encounter | [facility] | [address] | | | | | MED[facility] [address] | [address] [place] [address], | | | | | [address] [place] [address], | [place] [address] | | | | | [place] [address] | [phone] | | | | | [phone] | | | +--------+ + + + [...]
--- OUTSIDE RECORDS SUMMARY | ~2019-09-07 | XMS | Encounter Summary ---
Demographics + + + | Address | [address] | | | [place] [address] | + + + | Home Phone | | + + + | Preferred Language | Unknown | + + + | Marital Status | | + + + | Worship Affiliation | Unknown | + + + | Race | Unknown | + + + | Ethnic Group | Unknown | + + + Author + + + | Author | [facility] | | | and [place] | + + + | Organization | [facility] | | | and [place] [...] Team Providers + +------+ + | Care Box Person Name | Role | Phone | + +------+ + PCP | Unavailable | + +------+ + Encounter Details +--------+ + + + + | Date | Type | Department | Care Team | Description | +--------+ + + + + | 03/08/ | Hospital | [facility] | Jones Castellanos | | | 2006 - | Encounter | MED CTR OP REHAB | [address] | | | | | [address] [place] | [address] [place] | | | 04/06/ | | [place] [address] | [place] [address] | | | 2006 | | [phone] | [phone] | | | | | | | [...]
--- OUTSIDE RECORDS SUMMARY | ~2019-09-07 | XMS | Encounter Summary ---
Demographics + + + | Address | [address] | | | [place] [address] | + + + | Home Phone | | + + + | Preferred Language | Unknown | + + + | Marital Status | | + + + | Synagogue Affiliation | Unknown | + + + | Race | Unknown | + + + | Ethnic Group | Unknown | + + + Author + + + | Author | [facility] | | | and [place] | + + + | Organization | [facility] | | | and [...] Team Providers + +------+ + | Care Desulfurizer Hand Name | Role | Phone | + [...] | [place] | [place], [place] [address] | | | | | [address] | [phone] | | | | | [phone] | | | +--------+---------+ + + + [...] by her PCP, Dr. Perry, over in [place] where the patient lives. [facility] documentation was reviewed. History was from the patient and also. A week ago yesterday, the patient developed irritative voiding symptoms, with dysuria, freq uency, urgency. Also had gross hematuria and/or blood on the bathroom tissue. The patient was seen at Urgent Care over in [place]. By report, the urine culture was negative. [...] therapy, a nd has even gone to [place] a couple of times for treatment there. [...] Psychiatric: Alert and oriented 3. Anxious affect 36729 PELVIC ULTRASOUND, LIMITED: Using a [employer] Nemio [...] mg twice a day for a w creek. Urine culture pending. Eventual CMG This note [...] + + | [facility] | [address] | [place] [address] | [phone] | | HOSPITAL [facility] | | | | + + + + + documented in this encounter Visit Diagnoses + + | Diagnosis | + + | Gross hematuria - Primary | + + documented in this encounter
--- OUTSIDE RECORDS SUMMARY | ~2019-09-07 | XMS | Encounter Summary ---
Demographics + + + | Address | [address] | | | [place] [address] | + + + | Home Phone | | + + + | Preferred Language | Unknown | + + + | Marital Status | | + + + | Buddhism Affiliation | Unknown | + + + | Race | Unknown | + + + | Ethnic Group | Unknown | + + + Author + + + | Author | [facility] | | | and [place] | + + + | Organization | [facility] | | | and [...] Team Providers + +------+ + | Care Airplane Mechanic Name | Role | Phone | + +------+ + PCP | Unavailable | + +------+ + Encounter Details +--------+ + + + + | Date | Type | Department | Care Team | Description | +--------+ + + + + | 02/18/ | Hospital | [facility] | Jones [place] | | | 2006 - | Encounter | MED CTR OP REHAB | [address] | | | | | [address] [place] | [place] [address] [place] | | | 03/07/ | | [place] [address] | [place] [address] | | | 2006 | | [phone] | [phone] | | | | | | | [...]
--- OUTSIDE RECORDS SUMMARY | ~2019-09-07 | XMS | Encounter Summary ---
Demographics + + + | Address | [address] | | | [place] [address] | + + + | Home Phone | | + + + | Preferred Language | Unknown | + + + | Marital Status | | + + + | Caodaism Affiliation | Unknown | + + + | Race | Unknown | + + + | Ethnic Group | Unknown | + + + Author + + + | Author | [facility] | | | and [place] | + + + | Organization | [facility] | | | and [place] [...] Team Providers + +------+ + | Care Airport Operations Coordinator Name | Role | Phone | + +------+ + | Agapito Clemente MD | PCP | | + +------+ + Encounter Details +--------+ + + + + | Date | Type | Department | Care Team | Description | +--------+ + + + + | 11/07/ | Hospital [facility] | [place] | | | 2013 | Encounter | [facility] | [address] | | | | | MEDICAL CLIN[facility] [address] | [address] [place] [address], | | | | | [address] [place] [address], | [place] [address] | | | | | [place] [address] | [phone] | | | | | [phone] | | | +--------+ + + + [...]
--- OUTSIDE RECORDS SUMMARY | ~2019-09-07 | XMS | Encounter Summary ---
Demographics + + + | Address | [address] | | | [place] [address] | + + + | Home Phone | | + + + | Preferred Language | Unknown | + + + | Marital Status | | + + + | Taoism Affiliation | Unknown | + + + | Race | Unknown | + + + | Ethnic Group | Unknown | + + + Author + + + | Author | [facility] | | | and [place] | + + + | Organization | [facility] | [...] Team Providers + +------+ + | Care Specialist Employee Labor Relations Name | Role | Phone | + +------+ + PCP | Unavailable | + +------+ + Encounter Details +--------+ + + + + | Date | Type | Department | Care Team | Description | +--------+ + + + + | 09/19/ | Hospital | [facility] | | | | 2010 - | Encounter | MED CTR OP REHAB | | | | | | [address] | | | | 10/07/ | | [place] [address] | | | | 2010 | | [phone] | | | +--------+ + + + [...]
--- OUTSIDE RECORDS SUMMARY | ~2019-09-07 | XMS | Encounter Summary ---
Demographics + + + | Address | [address] | | | [place] [address] | + + + | Home Phone | | + + + | Preferred Language | Unknown | + + + | Marital Status | | + + + | Synagogue Affiliation | Unknown | + + + | Race | Unknown | + + + | Ethnic Group | Unknown | + + + Author + + + | Author | [facility] | | | and [place] | + + + | Organization | [facility] | | | and [place] [...] Team Providers + +------+ + | Care Painter Supervisor Name | Role | Phone | + +------+ + PCP | Unavailable | + +------+ + Encounter Details +--------+ + + + + | Date | Type | Department | Care Team | Description | +--------+ + + + + | 12/25/ | Hospital | [facility] | Dar[place]us [place], | | | 2006 | Encounter | [facility] [address] | MD [address] | | | | | [address] | [place], [place] | | | | | [place], [place] | [address] | | | | | [address] | [phone] | | | | | [phone] | | | +--------+ + + + [...]
--- OUTSIDE RECORDS SUMMARY | ~2019-09-07 | XMS | Clinical Summary ---
Demographics + + + | Address | [address] | | | [place] [address] | + + + | Home Phone | | + + + | Preferred Language | Unknown | + + + | Marital Status | | + + + | Advent Affiliation | Unknown | + + + [...] [place], [place] | | | | | [address] | | + + + + + Care Team Providers + +------+ + | Care Comptroller Name | Role | Phone | + +------+ + | Yasmin Perry MD | PCP | | + +------+ + Source Comments KEVIN is fully live on both [facility] and [facility] In[facility] Allergies + + + +--------+ + | [...] OE[facility] | MODA | [phone] | | [phone] | [address] | [address] | | | [address] | | [phone] | | | | [address] | | esent | | [place], | | | | [place] | | | | [place] [address] | | + +--------+ +--------+ + +------+ [...] sunday | | | 1 (Home) | [address] | + +--------+ +--------+ + +
--- OUTSIDE RECORDS SUMMARY | ~2019-09-07 | XMS | Encounter Summary ---
Demographics + + + | Address | [address] | | | [place] [address] | + + + | Home Phone | | + + + | Preferred Language | Unknown | + + + | Marital Status | | + + + | Evangelical Affiliation | Unknown | + + + | Race | Unknown | + + + | Ethnic Group | Unknown | + + + Author + + + | Author | [facility] | | | and [place] | + + + | Organization | [facility] | | | and [place] [...] Team Providers + +------+ + | Care Physician Relations Representative Name | Role | Phone | + +------+ + PCP | Unavailable | + +------+ + Encounter Details +--------+ + + + + | Date | Type | Department | Care Team | Description | +--------+ + + + + | 09/05/ | Hospital | [facility] | | | | 2010 - | Encounter | MED CTR OP REHAB | | | | | | [address] | | | | 09/06/ | | [place] [address] | | | | 2010 | | [phone] | | | +--------+ + + + [...]
--- OUTSIDE RECORDS SUMMARY | ~2019-09-07 | XMS | Encounter Summary ---
Demographics + + + | Address | [address] | | | [place] [address] | + + + | Home Phone | | + + + | Preferred Language | Unknown | + + + | Marital Status | | + + + | Muslim Affiliation | Unknown | + + + | Race | Unknown | + + + | Ethnic Group | Unknown | + + + Author + + + | Author | [facility] | | | and [place] | + + + | Organization | [facility] | | | and [...] Team Providers + +------+ + | Care Biochemistry Technologist Name | Role | Phone | + +------+ + PCP | Unavailable | + +------+ + Encounter Details +--------+ + + + + | Date | Type | Department | Care Team | Description | +--------+ + + + + | 12/18/ | Emergency | [facility] | Darrius Miner, | Other [place] and | | 2006 - | | MEDICAL CENTER | [address] | [place] | | | | EMERGENCY CENTER | [place], [place] | | | 12/19/ | | [address] | [address] | | | 2006 | | [place], [place] | [phone] | | | | | [address] | | | | | | [phone] | | | +--------+ + + + [...]
--- OUTSIDE RECORDS SUMMARY | ~2019-09-07 | XMS | Encounter Summary ---
Demographics + + + | Address | [address] | | | [place] [address] | + + + | Home Phone | | + + + | Preferred Language | Unknown | + + + | Marital Status | | + + + | Pentecostalism Affiliation | Unknown | + + + | Race | Unknown | + + + | Ethnic Group | Unknown | + + + Author + + + | Author | [facility] | | | and [place] | + + + | Organization | [facility] | | | and [...] Team Providers + +------+ + | Care Lift Truck Operator Name | Role | Phone | + +------+ + | Agapito Clemente MD | PCP | | + +------+ + Encounter Details +--------+ + + + + | Date | Type | Department | Care Team | Description | +--------+ + + + + | 11/07/ | Hospital [facility] | [place] | | | 2013 | Encounter | [facility] | [address] | | | | | MEDICAL CLIN[address] | [address] [place] [address], | | | | | [address] [place] [address], | [place] [address] | | | | | [place] [address] | [phone] | | | | | [phone] | | | +--------+ + + + [...]
--- OUTSIDE RECORDS SUMMARY | ~2019-09-07 | XMS | Clinical Summary ---
Demographics + + + | Address | [address] | | | [place] [address] | + + + | Home Phone [...] | Author | [facility] [employer] (Historical as of | | | 05-24-19) | + + + | Organization | [facility] [employer] (Historical as of | | | 05-24-19) [...] [place], [place] | | | | | [address] | | + + + + + Care Team Providers + +------+ + | Care Board Finisher Name | Role | Phone | + [...]
--- OUTSIDE RECORDS SUMMARY | ~2019-09-07 | XMS | Encounter Summary ---
Demographics + + + | Address | [address] | | | [place] [address] | + + + | Home Phone | | + + + | Preferred Language | Unknown | + + + | Marital Status | | + + + | Buddhism Affiliation | Unknown | + + + | Race | White | + + + | Ethnic Group | Not or | + + + Author + + + | Author | [facility] | + + + | Organization | [facility] | + + + | Address | Unknown | + + + | Phone | Unavailable | + + + Support + + + + + | Name | Relationship | Address | Phone | + + + + + | Nitesh Chilel | ECON | [address] | | | | | [place], [place] | | | | | [address] | | + + + + + Care Team Providers + +------+ + | Care Bead Forming Machine Set Up Operator Name | Role | Phone | [...] | | | [facility] | Road [place], [place] | | | | | [address] | [address] | | | | | Celeste Elkins Mailcode: | | | | | | [id number] | | | | | | [facility] | | | | | | [place], [place] | | | | | | [address] | | | | | | [phone] | | | +--------+ + + + [...]
--- OUTSIDE RECORDS SUMMARY | ~2019-09-07 | XMS | Encounter Summary ---
Demographics + + + | Address | [address] | | | [place] [address] | + + + | Home Phone | | + + + | Preferred Language | Unknown | + + + | Marital Status | | + + + | Mormonism Affiliation | Unknown | + + + | Race | Unknown | + + + | Ethnic Group | Unknown | + + + Author + + + | Author | [facility] | | | and [place] | + + + | Organization | [facility] | | | and [...] Team Providers + +------+ + | Care Engineering Patternmaker Name | Role | Phone | + +------+ + PCP | Unavailable | + +------+ + Encounter Details +--------+ + + + + | Date | Type | Department | Care Team | Description | +--------+ + + + + | 04/09/ | Hospital | [facility] | Jones Castellanos | | | 2006 - | Encounter | MED CTR OP REHAB | [address] | | | | | [address] [place] | [address] [place] | | | 05/07/ | | [place] [address] | [place] [address] | | | 2006 | | [phone] | [phone] | | | | | | | [...]
--- OUTSIDE RECORDS SUMMARY | ~2019-09-07 | XMS | Encounter Summary ---
Demographics + + + | Address | [address] | | | [place] [address] | + + + | Home Phone | | + + + | Preferred Language | Unknown | + + + | Marital Status | | + + + | Confucianist Affiliation | Unknown | + + + | Race | Unknown | + + + | Ethnic Group | Unknown | + + + Author + + + | Author | [facility] | | | and [place] | + + + | Organization | [facility] | | | and [place] [...] Team Providers + +------+ + | Care Client Renewal Specialist Name | Role | Phone | + +------+ + PCP | Unavailable | + +------+ + Encounter Details +--------+ + + + + | Date | Type | Department | Care Team | Description | +--------+ + + + + | 12/25/ | Hospital | [facility] | Darrius Miner, | | | 2006 | Encounter | CONVERSION [address] | MD [address] | | | | | [address] | [place], [place] | | | | | [place], [place] | [address] | | | | | [address] | [phone] | | | | | [phone] | | | +--------+ + + + [...]
--- OUTSIDE RECORDS SUMMARY | ~2019-09-07 | XMS | Encounter Summary ---
Demographics + + + | Address | [address] | | | [place] [address] | + + + | Home Phone | | + + + | Preferred Language | Unknown | + + + | Marital Status | | + + + | Confucianism Affiliation | Unknown | + + + | Race | Unknown | + + + | Ethnic Group | Unknown | + + + Author + + + | Author | [facility] | | | and [place] | + + + | Organization | [facility] | | | and [...] Team Providers + +------+ + | Care Camp Housekeeper Name | Role | Phone | + +------+ + PCP | Unavailable | + +------+ + Encounter Details +--------+ + + + + | Date | Type | Department | Care Team | Description | +--------+ + + + + | 10/10/ | Hospital | [facility] | | | | 2011 - | Encounter | MED CTR OP REHAB | | | | | | [address] | | | | 11/07/ | | [place] [address] | | | | 2011 | | [phone] | | | +--------+ + + + [...]
--- OUTSIDE RECORDS SUMMARY | ~2019-09-07 | XMS | Encounter Summary ---
Demographics + + + | Address | [address] | | | [place] [address] | + + + | Home Phone | | + + + | Preferred Language | Unknown | + + + | Marital Status | | + + + | Latter Day Affiliation | Unknown | + + + [...] [place], [place] | | | | | [address] | | + + + + + Care Team Providers + +------+ + | Care Locomotive Crane Operator Name | Role | Phone | + +------+ + | Yasmin Perry MD | PCP | | + +------+ + Encounter Details +--------+ + + + + | Date | Type | Department | Care Team | Description | +--------+ + + + + | 01/25/ | Outside | UNKNOWN DEPARTMENT | Other, Faculty | | | 2016 | Records | [address] [facility] | [phone] | | | | | [address] | | | | | | [place], [place] | | | | | | [address] | | | +--------+ + + + [...]
--- OUTSIDE RECORDS SUMMARY | ~2019-09-07 | XMS | Encounter Summary ---
Demographics + + + | Address | [address] | | | [place] [address] | + + + | Home Phone | | + + + | Preferred Language | Unknown | + + + | Marital Status | | + + + | Samaritan Affiliation | Unknown | + + + | Race | Unknown | + + + | Ethnic Group | Unknown | + + + Author + + + | Author | [facility] | | | and [place] | + + + | Organization | [facility] | [...] Team Providers + +------+ + | Care Direct Support Professional Caregiver Name | Role | Phone | + [...] | | | [place], [place] | [place] [address] | | | | | [address] | [phone] | | | | | [phone] | | | +--------+ + + + [...] was used for local anesthesia. A 17 Sierra Leonean scope was passed. The bl adder was [...]
--- OUTSIDE RECORDS SUMMARY | ~2019-09-07 | XMS | Encounter Summary ---
Demographics + + + | Address | [address] | | | [place] [address] | + + + | Home Phone | | + + + | Preferred Language | Unknown | + + + | Marital Status | | + + + | Mu-Ism Affiliation | Unknown | + + + | Race | Unknown | + + + | Ethnic Group | Unknown | + + + Author + + + | Author | [facility] | | | and [place] | + + + | Organization | [facility] | | | and [place] [...] Team Providers + +------+ + | Care Road Gang Supervisor Name | Role | Phone | + +------+ + PCP | Unavailable | + +------+ + Encounter Details +--------+ + + + + | Date | Type | Department | Care Team | Description | +--------+ + + + + | 10/10/ | Hospital | [facility] | | | | 2011 - | Encounter | MED CTR OP REHAB | | | | | | [address] | | | | 11/07/ | | [place] [address] | | | | 2011 | | [phone] | | | +--------+ + + + [...]
--- OUTSIDE RECORDS SUMMARY | ~2019-09-07 | XMS | Encounter Summary ---
Demographics + + + | Address | [address] | | | [place] [address] | + + + | Home Phone | | + + + | Preferred Language | Unknown | + + + | Marital Status | | + + + | Episcopal Affiliation | Unknown | + + + | Race | Unknown | + + + | Ethnic Group | Unknown | + + + Author + + + | Author | [facility] | | | and [place] | + + + | Organization | [facility] | | | and [...] Team Providers + +------+ + | Care Diesel Engine Inspector Name | Role | Phone | + +------+ + PCP | Unavailable | + +------+ + Encounter Details +--------+ + + + + | Date | Type | Department | Care Team | Description | +--------+ + + + + | 12/18/ | Emergency | [facility] | Darrius Miner, | Other Mala[place] and | | 2006 - | | MEDICAL CENTER | [address] | Fatigue | | | | EMERGENCY CENTER | [place], [place] | | | 12/19/ | | [address] | [address] | | | 2006 | | [place], [place] | [phone] | | | | | [address] | | | | | | [phone] | | | +--------+ + + + [...]
--- OUTSIDE RECORDS SUMMARY | ~2019-09-07 | XMS | Encounter Summary ---
Demographics + + + | Address | [address] | | | [place] [address] | + + + | Home Phone | | + + + | Preferred Language | Unknown | + + + | Marital Status | | + + + | Yazidi Affiliation | Unknown | + + + | Race | Unknown | + + + | Ethnic Group | Unknown | + + + Author + + + | Author | [facility] | | | and [place] | + + + | Organization | [facility] | | | and [...] Team Providers + +------+ + | Care Residential Caregiver Name | Role | Phone | + +------+ + PCP | Unavailable | + +------+ + Encounter Details +--------+ + + + + | Date | Type | Department | Care Team | Description | +--------+ + + + + | 09/05/ | Hospital | [facility] | | | | 2010 - | Encounter | MED CTR OP REHAB | | | | | | [address] | | | | 09/06/ | | [place] [address] | | | | 2010 | | [phone] | | | +--------+ + + + [...]
--- OUTSIDE RECORDS SUMMARY | ~2019-09-07 | XMS | Encounter Summary ---
Demographics + + + | Address | [address] | | | [place] [address] | + + + | Home Phone | | + + + | Preferred Language | Unknown | + + + | Marital Status | | + + + | Temple Affiliation | Unknown | + + + | Race | Unknown | + + + | Ethnic Group | Unknown | + + + Author + + + | Author | [facility] | | | and [place] | + + + | Organization | [facility] | | | and [place] [...] Team Providers + +------+ + | Care Log Chain Feeder Name | Role | Phone | + +------+ + PCP | Unavailable | + +------+ + Encounter Details +--------+ + + + + | Date | Type | Department | Care Team | Description | +--------+ + + + + | 03/13/ | Hospital | [facility] | [place] | | | 2013 | Encounter | [facility] | [address] | | | | | MEDICAL CLIN[address] | [facility], | | | | | [facility], | [place] [address] | | | | | [place] [address] | [phone] | | | | | [phone] | | | +--------+ + + + [...]
--- OUTSIDE RECORDS SUMMARY | ~2019-09-07 | XMS | Encounter Summary ---
Demographics + + + | Address | [address] | | | [place] [address] | + + + | Home Phone [...] + | Author | [facility] | | | and [place] | + + + | Organization | [facility] [...] Providers + +------+ + | Care Remote Broadcast Technician Name | Role | Phone | + +------+ + PCP | Unavailable | + +------+ + Encounter Details +--------+ + + + + | Date | Type | Department | Care Team | Description | +--------+ + + + + | 03/13/ | Hospital | [facility] | [place] | | | 2013 | Encounter | [facility] | [address] | | | | | MEDICAL CLINIC [address] | [facility], | | | | | [facility], | [place] [address] | | | | | [place] [address] | [phone] | | | | | [phone] | | | +--------+ + + + [...]
--- OUTSIDE RECORDS SUMMARY | ~2019-09-07 | XMS | Clinical Summary ---
Demographics + + + | Address | [address] | | | [place] [address] | + + + | Home Phone | | + + + | Preferred Language | Unknown | + + + | Marital Status | | + + + | Jewish Affiliation | Unknown | + + + | Race | Unknown | + + + | Ethnic Group | Unknown | + + + Author + + + | Author | [facility] | | | and [place] | + + + | Organization | [facility] | | | and [...] Team Providers + +------+ + | Care Cook Vegetable Name | Role | Phone | + [...] + +------+ | MODA | MODA | [id number] | 10[birth year]19 | [phone] | [address] | P[address] | | | [address] | | [address] | [address] | [address] | | | | [place] | | sent | | [place], | | | | [place] | | | | [place] [address] | | +-------+--------+ +--------+ + +------+ | MODA | MODA | [id number] | | [phone] | [address] | P[address] | | | [address] | | [address] | 9 | [address] | | | | [place] | | esent | | [place], | | | | [place] | | | | [place] [address] | | +-------+--------+ +--------+ + +------+ + [...] | 1961 | [phone] | [place] [address] | | | sunday | | | 1 (Home) | | + +--------+ +--------+ + + | Olesya Chilel | Person | Self | [birth year] | [address] | | | al/Fam | | 1961 | [phone] | [place] [address] | | | sunday | | | 1 (Home) | | + +--------+ +--------+ + + Advance Directives + + + + + | Type | Date Recorded | Patient | Explanation | | | | Machine Records Units Supervisor | | + + + + + | Power of | | | | | Telecommunications Facility Examiner | | | | + + + + + | Advance | | | | | Directive | | | | + + + + +
--- OUTSIDE RECORDS SUMMARY | ~2019-09-07 | XMS | Encounter Summary ---
Demographics + + + | Address | [address] | | | [place] [address] | + + + | Home Phone | | + + + | Preferred Language | Unknown | + + + | Marital Status | | + + + | Mormon Affiliation | Unknown | + + + | Race | Unknown | + + + | Ethnic Group | Unknown | + + + Author + + + | Author | [facility] | | | and [place] | + + + | Organization | [facility] | | | and [...] Team Providers + +------+ + | Care Obstetrical Anesthesiologist Name | Role | Phone | + +------+ + PCP | Unavailable | + +------+ + Encounter Details +--------+ + + + + | Date | Type | Department | Care Team | Description | +--------+ + + + + | 04/09/ | Hospital | [facility] | Jones Castellanos | | | 2006 - | Encounter | MED CTR OP REHAB | [address] | | | | | [address] [place] | [place] [place] | | | 05/07/ | | [place] [address] | [place] [address] | | | 2006 | | [phone] | [phone] | | | | | | | [...]
--- OUTSIDE RECORDS SUMMARY | ~2019-09-07 | XMS | Encounter Summary ---
Demographics + + + | Address | [address] | | | [place] [address] | + + + | Home Phone | | + + + | Preferred Language | Unknown | + + + | Marital Status | | + + + | Voodoo Affiliation | Unknown | + + + | Race | Unknown | + + + | Ethnic Group | Unknown | + + + Author + + + | Author | [facility] | | | and [place] | + + + | Organization | [facility] | | | and [place] [...] Team Providers + +------+ + | Care Resident Intern Name | Role | Phone | + +------+ + PCP | Unavailable | + +------+ + Encounter Details +--------+ + + + + | Date | Type | Department | Care Team | Description | +--------+ + + + + | 09/19/ | Hospital | [facility] | | | | 2010 - | Encounter | MED CTR OP REHAB | | | | | | [address] | | | | 10/07/ | | [place] [address] | | | | 2010 | | [phone] | | | +--------+ + + + [...]
[~2019-09-07 08:51] MED LIST: ATIVAN1 MG PO; CYMBALTA30 MG PO; GLYCERIN TP; NEURONTIN100 MG PO; NORCO 5-325 TA1 EACH PO; PREDNISONE20 MG PO; SYNTHROID75 MCG PO; ZOFRAN4 MG PO
[2019-09-07] MEDS ORDERED: NORCO 7.5-3251 EACH PO (10:14)
== END 2019-09-07 11:46 | disposition home or self-care (01) ==
LOC: ED 08:51
DX: S52.572A Other intraarticular fracture of lower end of left radius, initial encounter for closed fracture (principal); W22.8XXA Striking against or struck by other objects, initial encounter; Z79.899 Other long term (current) drug therapy; Z79.52 Long term (current) use of systemic steroids
CPT/HCPCS: 25605; 73110; 99283-25; J1170; J2405; J7030

== ENCOUNTER 2020-06-25 09:50 | Emergency (ER) | payer OTHER ==
[~2020-06-25] VITALS: Ht 175.3 cm; Wt 61.2 kg
--- OUTSIDE RECORDS SUMMARY | ~2020-06-25 | XMS | Encounter Summary ---
Demographics + + + | Address | [address] | | | [place] [address] | + + + | Home Phone | | + + + | Preferred Language | Unknown | + + + | Marital Status | | + + + | Judaism Affiliation | Unknown | + + + | Race | White | + + + | Ethnic Group | Not or | + + + Author + + + | Author | [facility] | + + + | Organization | [facility] | + + + | Address | Unknown | + + + | Phone | Unavailable | + + + Support + + + + + | Name | Relationship | Address | Phone | + + + + + | Nitesh Chilel | ECON | [address] | | | | | [place], [place] | | | | | [address] | | + + + + + Care Team Providers + +------+ + | Care Insulation Power Unit Tender Name | Role | Phone | + +------+ + | Yasmin Perry MD | PCP | | + +------+ + Encounter Details +--------+ + + + + | Date | Type | Department | Care Team | Description | +--------+ + + + + | 01/25/ | Outside | UNKNOWN DEPARTMENT | Other, Faculty | | | 2016 | Records | [address] [facility] | [phone] | | | | | [address] | | | | | | [place], [place] | | | | | | [address] | | | +--------+ + + + [...] on file | | + + + documented as of this encounter Plan of Treatment Not on filedocumented as of this encounter Procedures + +--------+ + + + | Procedure Name | Priori | Date/Time | Associated Diagnosis | Comments | | | ty | | | | + +--------+ + + + | OUTSIDE LAB - | | 01/25/2017 | | Results for this | | PATHOLOGY | | 12:00 AM | | procedure are in the | | | | PDT | | results section. | + +--------+ + + + documented in this encounter Results OUTSIDE LAB - PATHOLOGY (01/25/2017 12:00 AM PDT) + + + | Narrative | Performed At | + + + | | | + + + documented in this encounter Visit Diagnoses Not on filedocumented in this encounter"
--- OUTSIDE RECORDS SUMMARY | ~2020-06-25 | XMS | Encounter Summary ---
Demographics + + + | Address | [address] | | | [place] [address] | + + + | Home Phone | | + + + | Preferred Language | Unknown | + + + | Marital Status | | + + + | Spiritism Affiliation | Unknown | + + + | Race | White | + + + | Ethnic Group | Not or | + + + Author + + + | Author | [facility] | | | and [place] | + + + | Organization | [facility] | | | and [...] Team Providers + +------+ + | Care Fur Floor Worker Name | Role | Phone | + +------+ + PCP | Unavailable | + +------+ + Encounter Details +--------+ + + + + | Date | Type | Department | Care Team | Description | +--------+ + + + + | 04/09/ | Hospital | [facility] | Jones Castellanos | | | 2006 - | Encounter | MED CTR OP REHAB | MD [address] | | | | | [address] [place] | [address] [place] | | | 05/07/ | | [place] [address] | [place] [address] | | | 2006 | | [phone] | [phone] | | | | | | | | +--------+ + + + [...]
--- OUTSIDE RECORDS SUMMARY | ~2020-06-25 | XMS | Encounter Summary ---
Demographics + + + | Address | [address] | | | [place] [address] | + + + | Home Phone | | + + + | Preferred Language | Unknown | + + + | Marital Status | | + + + | Caodaism Affiliation | Unknown | + + + | Race | White | + + + | Ethnic Group | Not or | + + + Author + + + | Author | [facility] | + + + | Organization | [facility] | + + + | Address | Unknown | + + + | Phone | Unavailable | + + + Support + + + + + | Name | Relationship | Address | Phone | + + + + + | Nitesh Chilel | ECON | [address] | | | | | [place], [place] | | | | | [address] | | + + + + + Care Team Providers + +------+ + | Care Football Scout Name | Role | Phone | + +------+ + PCP | Unavailable | + +------+ + Encounter Details +--------+ + + + + | Date | Type | Department | Care Team | Description | +--------+ + + + + | 08/29/ | Results | [facility] | Viktoriya | | | 2009 | Only | Department | MD Duane Alvarado | | | | | | [facility] | | | | | | [address] | | | | | | [address] | | | | | | [place], [place] | | | | | | [address] | | | | | | | [...] | + +--------+ + + + | DERMATOPATHOLOGY(WET | Routin | 08/29/2010 | | Results for this | | [facility]) | e | | | procedure are in the | | | | | | results section. | + +--------+ + + + documented in this encounter Results DERMATOPATHOLOGY(WET [place]) (08/29/2010) + + + + + + | Component | Value | Ref Range | Performed | Pathologist | | | | | At | Signature | + + + + + + | DERMATOPATH | SOURCE OF SPECIMEN:A | | [facility] | | | OLOGY(WET | FIRST TISSUE LEVEL IV | | DERMATOPATH | | | MNT) | [address] CLINICAL | | OLOGY | | | | DESCRIPTION:Wilfredo lt. | | | | | | 5th toe, R/O | | | | | | Atypical/Malignancy | | | | | | GROSS | | | | | | DESCRIPTION:Left 5th | | | | | | toe: The specimen is | | | | | | received in formalin, | | | | | | labeled with | | | | | | thepatient's name and | | | | | | consists of a pale townsend | | | | | | and brown shave biopsy, | | | | | | measuring0.5 x 0.4cm. | | | | | | The specimen is | | | | | | bisected and entirely | | | | | | submitted in | | | | | | onecassette. | | | | | | MICROSCOPIC | | | | | | DESCRIPTION:In the left | | | | | | fifth toe shave biopsy, | | | | | | there is a small, | | | | | | relatively | | | | | | wellcircumscribed and | | | | | | symmetrical melanocytic | | | | | | neoplasm composed of | | | | | | nests ofmelanocytes and | | | | | | increased numbers of | | | | | | single melanocytes along | | | | | | the epidermalbasal cell | | | | | | layer and nests of | | | | | | somewhat similar in | | | | | | appearance | | | | | | melanocyteswithin the | | | | | | papillary dermis. A few | | | | | | single melanocytes are | | | | | | also presentwithin the | | | | | | upper spinous cell | | | | | | layer, granular cell | | | | | | layer, and | | | | | | stratumcorneum. The | | | | | | melanocytic nuclei are | | | | | | moderately large, some | | | | | | are slightlypleomorphic | | | | | | and hyperchromatic and | | | | | | some of the cells have | | | | | | pale stainingcytoplasm | | | | | | containing melanin. | | | | | | Scattered melanophages | | | | | | are also presentwithin | | | | | | the papillary dermis. | | | | | | | | | | | | DIAGNOSIS:MELANOCYTIC | | | | | | NEVUS, COMPOUND TYPE. | | | | | | NOTE: The left fifth | | | | | | toe MELANOCYTIC NEVUS | | | | | | extends to the surgical | | | | | | marginsof the shave | | | | | | specimen. | | | | | | VBK/KPW:dlb09/06/10 | | | | | | Case review | | | | | | by:Ronda Araujo, | | | | | | M.D. / Dermatopathology | | | | | | Feliz Herrmann, | | | | | | M.D. / | | | | | | Dermatopathologist | | | | | | My electronic signature | | | | | | indicates that I have | | | | | | personally reviewed | | | | | | alldiagnostic slides, | | | | | | the gross and/or | | | | | | microscopic portion of | | | | | | thisreport and | | | | | | formulated the final | | | | | | diagnosis. | | | | | | Rendering Diagnostician: | | | | | | Ki Herrmann | | | | | | M.QuanPathologistElectroni | | | | | | krzysztof Signed 09/07/2010 | | | | + + + + + + + + | Specimen | + + | | + + + + + + + | Performing | Address | City/State/Zipcode | Phone Number | | Organization | | | | + + + + + | [facility] | [address] | [place] [address] | | | DERMATOPATHOLOGY | [address] | | | + + + + + | [facility] | [address] | [place] [address] | | | DERMATOPATHOLOGY | [address] | | | + + + + + documented in this encounter Visit Diagnoses Not on filedocumented in this encounter"
--- OUTSIDE RECORDS SUMMARY | ~2020-06-25 | XMS | Encounter Summary ---
Demographics + + + | Address | [address] | | | [place] [address] | + + + | Home Phone | | + + + | Preferred Language | Unknown | + + + | Marital Status | | + + + | Judaism Affiliation | Unknown | + + + | Race | White | + + + | Ethnic Group | Not or | + + + Author + + + | Author | [facility] | | | and [place] | + + + | Organization | [facility] | | [...] Team Providers + +------+ + | Care Corporate Giving Manager Name | Role | Phone | + +------+ + | Agapito Clemente MD | PCP | | + +------+ + Encounter Details +--------+ + + + + | Date | Type | Department | Care Team | Description | +--------+ + + + + | 11/07/ | [facility] | [place] | | | 2013 | Encounter | [facility] | [address] | | | | | MEDICAL CLINIC [address] | [address] [place] [address], | | | | | [address] [place] [address], | [place] [address] | | | | | [place] [address] | [phone] | | | | | [phone] | | | +--------+ + + + [...]
--- OUTSIDE RECORDS SUMMARY | ~2020-06-25 | XMS | Encounter Summary ---
Demographics + + + | Address | [address] | | | [place] [address] | + + + | Home Phone | | + + + | Preferred Language | Unknown | + + + | Marital Status | | + + + | Yazdanism Affiliation | Unknown | + + + | Race | White | + + + | Ethnic Group | Not or | + + + Author + + + | Author | [facility] | | | and [place] | + + + | Organization | [facility] | | [...] Team Providers + +------+ + | Care Parts Sales Manager Name | Role | Phone | + +------+ + PCP | Unavailable | + +------+ + Encounter Details +--------+ + + + + | Date | Type | Department | Care Team | Description | +--------+ + + + + | 12/18/ | Emergency | [facility] | Darrius Miner, | Other Malaise and | | 2006 - | | MEDICAL CENTER | MD [address] | Fatigue | | | | EMERGENCY CENTER | [place], [place] | | | 12/19/ | | [address] | [address] | | | 2006 | | [place], [place] | [phone] | | | | | [address] | | | | | | [phone] | | | +--------+ + + + [...] filedocumented as of this encounter Visit Diagnoses + + | Diagnosis | + + | Other malaise and fatigue | + + documented in this encounter"
--- OUTSIDE RECORDS SUMMARY | ~2020-06-25 | XMS | Encounter Summary ---
Demographics + + + | Address | [address] | | | [place] [address] | + + + | Home Phone | | + + + | Preferred Language | Unknown | + + + | Marital Status | | + + + | Jehovah'S Witness Affiliation | Unknown | + + + | Race | White | + + + | Ethnic Group | Not or | + + + Author + + + | Author | [facility] | | | and [place] | + + + | Organization | [facility] | | | and [...] Team Providers + +------+ + | Care Talk Show Host Name | Role | Phone | + +------+ + PCP | Unavailable | + +------+ + Encounter Details +--------+ + + + + | Date | Type | Department | Care Team | Description | +--------+ + + + + | 03/08/ | Hospital | [facility] | Jones Castellanos | | | 2006 - | Encounter | MED CTR OP REHAB | MD [address] | | | | | [address] [place] | [address] [place] | | | 04/06/ | | [place] [address] | [place] [address] | | | 2006 | | [phone] | [phone] | | | | | | | [...]
--- OUTSIDE RECORDS SUMMARY | ~2020-06-25 | XMS | Encounter Summary ---
Demographics + + + | Address | [address] | | | [place] [address] | + + + | Home Phone | | + + + | Preferred Language | Unknown | + + + | Marital Status | | + + + | Methodist Affiliation | Unknown | + + + | Race | White | + + + | Ethnic Group | Not or | + + + Author + + + | Author | [facility] | + + + | Organization | [facility] | + + + | Address | Unknown | + + + | Phone | Unavailable | + + + Support + + + + + | Name | Relationship | Address | Phone | + + + + + | Nitesh Chilel | ECON | [address] | | | | | [place], [place] | | | | | [address] | | + + + + + Care Team Providers + +------+ + | Care Director Of Industrial Relations Name | Role | Phone | + +------+ + | Yasmin Perry MD | PCP | | + +------+ + Reason for Visit + + + | Reason | Comments | + + + | New patient | | | consultation | | + + + Intake Referral (Routine) +--------+--------+ + + + + | Status | Reason | Specialty | Diagnoses / | Referred By | Referred To | | | | | Procedures | Contact | Contact | +--------+--------+ + + + + | Closed | | Obstetrics & | Diagnoses | Perry, | [facility] | | | | Gynecology | Full | Lohith | [address] | | | | | incontinence | MD Amalia | [address] | | | | | of feces | [address] | [place] | | | | | Procedures | [address] | [address], [address] | | | | | [place] | [place], | floor | | | | | PATIENT | [place] [address] | [place], [place] | | | | | L[place] | Phone: | [phone] | | | | | EST PATIENT | [phone] | Phone: | | | | | LEVEL V | Fax: | [phone] | | | | | | [phone] | Fax: | | | | | | | [phone] | +--------+--------+ + + + + Encounter Details +--------+---------+ + + + | Date | Type | Department | Care Team | Description | +--------+---------+ + + + | 08/26/ | Office | [facility] | Tuan Renee, | Full incontinence of | | 2018 | Visit | [facility] | [address] | feces (Primary Dx) | | | | [address] | [facility] | | | | | [address] | [place], [place] | | | | | [address], 7th floor | [address] | | | | | [place], [place] | [phone] | | | | | [address] | | | | | | [phone] | | | +--------+---------+ + + + Social History + +-------+ [...] + + + documented in this encounter Patient Instructions Patient Instructions David Andrews MD - 08/26/2018 11:15 AM PSTWe discussed today that you have symptomatic fecal incontinence. We detailed the treatment algorithm for this which in cludes conservative therapies like immodium, physical therapy, and ways to manage anxiety an d stress. Should those not we we discussed sacral neuromodulation (Interstim) versus sphinc teroplasty. The endoanal ultrasound done today shows that your external anal sphincter is i ntact. We have provided you a list of physical therapy providers. Feel free to contact our office if you have any questions. 12 :25 PM PST documented in this encounter Progress Notes David Andrews MD - 08/26/2018 11:15 AM PSTFPMRS New Patient Visit Note HPI: Ms. Chilel is a reporting the following problems: Olesya Chilel is a 57 yo postmenopausal with history of KIKE for endometriosis who prese nts for evaluation of fecal incontinence. This has been a longstanding issues for many year s and she presents today for a second opinion. She has seen Dr Adilson Leal in [place], [place] who recommended conservative management with immodium and pelvic floor physical therap y and also counseled her on possibility of sphincteroplasty versus sacral neuromodulation. She has incontinence of stool almost daily now. She tried immodium (2mg tab once daily) fo r 4 weeks and notes this did not work. She did pursue physical therapy - almost 2 months wo rth (approx 6 session) and states this cause her too much rectal and pelvic pain and was als o a far drive from her house ([address] She does note a great deal of stress and has been in counseling and therapy for this. Notes that her symptoms are often worse with stress. She endorses pelvic pain and often has pain with intercourse. She has had surgery for endometriosis in the past (presacral neurectomy) and has had three lower back surgeries. She did have a forceps-assisted vaginal delivery during her first . Unsure the d egree of tear at the time. A 10-point review of systems was reviewed on the patient intake questionnaire (scanned into [employer]) and with the patient. The summary is reported below, and is negative unless otherwis e noted. REVIEW OF SYSTEMS GENERAL: Negative ENT: Negative EYES: Negative MUSCULOSKELETAL: Negative GI: Negative CV: Negative RESP: Negative PSYCH: Negative ENDOCRINE: Negative HEMATOLOGIC: Negative In addition, the past medical history, surgical history, family history, social history, an d current medications were reviewed on the patient intake questionnaire provided at today s visit to be found in the scanned documents in [employer]. They have also been entered into rele vant andrews of the [employer] database. PHYSICAL EXAM Last Vitals: BP 104/76 | Pulse 69 | Temp 36.7 C (98 F) | Ht 1.753 m (5' 9") | Wt 63.4 k g (139 lb 11.2 oz) | SpO2 99% | BMI 20.63 kg/(m^2) GENERAL: Healthy appearing, no acute distress NECK: No thyromegaly, no masses LYMPH: No inguinal lymphadenopathy RESPIRATORY: Breathing without difficulty CARDIOVASCULAR: No pedal edema ABDOMEN: No HSM, mass, or hernias SKIN: Warm and dry NEUROLOGIC GAIT: Normal SACRAL SENSATION: Grossly Intact LEFT BULBOCAVERNOSUS REFLEX: Present RIGHT BULBOCAVERNOSUS REFLEX: Present ORIENTATION: Oriented to time, place, and person AFFECT: Normal GENERAL PELVIC EXAM EXTERNAL GENITALIA: Normal External Genitalia URETHRA: Normal BLADDER: Non tender to palpation VAGINA Normal diameter atrophic appearance ANTERIOR VAGINAL RUGAE Normal POSTERIOR VAGINAL RUGAE Normal CERVIX Surgically absent UTERUS Surgically absent ADNEXA Surgically absent ANUS & PERINEUM: Decreased sphincter tone No masses palpated ANAL CANAL: Normal length ANAL SQUEEZE: weak squeeze tone PELVIC FLOOR MUSCLE TESTS The levator muscles were also assessed. By palpating the levator ani muscles transvaginall y while contracted, the following was noted: TEST: PELVIC FLOOR COORDINATION: Performs Correctly Symmetric TEST: PELVIC FLOOR DISPLACEMENT ABILITY: 1 (Min = 1; Max = 4) TEST: PELVIC FLOOR PRESSURE CREATION: 2 (Min = 1; Max = 4) TEST: DURATION OF PELVIC FLOOR CONTRACTION (SCALE): 1 (Min = 1; Max = 4) TOTAL PELVIC FLOOR STRENGTH/ABILITY SCORE: 4 (Min = 3; Max = 12) PELVIC FLOOR ULTRASOUNDS We performed an ultrasound of the pelvis. Images obtained can be found in the [employer] Ta b. The findings are summarized below. EQUIPMENT USED: BK Nexid/1850 probe ANAL US FINDINGS UPPER IAS: Intact AFFECTED QUADRANTS: None/NA MID IAS: Intact AFFECTED QUADRANTS: None/NA MID EAS: Intact AFFECTED QUADRANTS: None/NA DIST EAS: Intact AFFECTED QUADRANTS: None/NA ANAL MASSESNone ASSESSMENT MULT. DX/TX OPTIONS SYMPTOMS DISCUSSED Fecal incontinence Pelvic Pain PHYSICAL FINDINGS Vulvovaginal Atrophy Normal Vaginal Support Poor anal sphincter tone Normal sphincter on ultrasound DATA/ LAB TESTS REVIEWED/ORDERED Pelvic Ultrasound RECOMMENDATIONS TREATMENT OPTIONS CONSIDERED: PT for Muscle Strengthening MEDICATIONS Immodium 2-8 mg po qd prn Olesya Chilel is a 57 yo postmenopausal who presents for evaluation of fecal incontinen ce. Discussed findings on exam including decreased sphincter resting tone and squeeze tone. Performed endoanal ultrasound and IAS and EAS appear intact. Discussed the stepwise treat ment for fecal incontinence that includes first behavioral and physical therapy as well as m edications such as immodium (up to 16mg daily). Discussed that she could try physical thera py again and increase the amount of immodium that she is taking. If these conservative brigid ures fail, we discussed the possibility of sphincteroplasty versus sacral neuromodulation. She has an intact sphincter on exam and so may not benefit from sphincteroplasty. We discus sed benefit up to 75% immediately after procedure with decrease effectiveness in the long te rm. We outlined a 50-70% chance of success with SNM. She in unsure whether or not she will pursue care here or with Dr Leal in [place]. We have provided her with this information and she was grateful for the consult. Will return to clinic as needed. Patient seen, examined, and discussed with Dr Renee. David Andrews MD, FPS Fellow Tuan Mayer MD - 08/26/2018 11:15 AM PSTI have seen and examined Ms Chilel and ag ree with Dr Sage's note and assessment. I was present for all procedures in their entiret y as documented. documented in this encounter Plan of Treatment Not on filedocumented as of this encounter Visit Diagnoses + + | Diagnosis | + + | Full incontinence of feces - Primary | + + documented in this encounter
--- OUTSIDE RECORDS SUMMARY | ~2020-06-25 | XMS | Encounter Summary ---
Demographics + + + | Address | [address] | | | [place] [address] | + + + | Home Phone | | + + + | Preferred Language | Unknown | + + + | Marital Status | | + + + | Voodoo Affiliation | Unknown | + + + | Race | White | + + + | Ethnic Group | Not or | + + + Author + + + | Author | [facility] | | | and [place] | + + + | Organization | [facility] | | | [...] Team Providers + +------+ + | Care Basket Hand Braider Name | Role | Phone | + +------+ + | Yasmin Perry MD | PCP | | + +------+ + Reason for Visit + + + | Reason | Comments | + + + | Foreign Body in Skin | Left finger | + + + Encounter Details +--------+---------+ + + + | Date | Type | Department | Care Team | Description | +--------+---------+ + + + | 04/26/ | Office | [place] [facility] | Josephine Munguia, | Foreign body in skin | | 2020 | Visit | [facility] | [employer] WORK[employer] [address] [place] | (Primary Dx); | | | | [address] | [place] [address] | Infection of finger | | | | [place], [place] | [phone] | | | | | [address] | | | | | | [phone] | | | +--------+---------+ + + + [...] + + + | Blood Pressure | 91/55 | 04/26/2020 1:39 PM | | | | | PDT | | + + + + + | Pulse | 72 | 04/26/2020 1:39 PM | | | | | PDT | | + + + + + | Temperature | 37.1 C (98.7 F) | 04/26/2020 1:39 PM | | | | | PDT | | + + + + + | Respiratory Rate | 17 | 04/26/2020 1:39 PM | | | | | PDT | | + + + + + | Oxygen Saturation | 98% | 04/26/2020 1:39 PM | | | | | PDT | | + + + + + | Inhaled Oxygen | - | - | | | Concentration | | | | + + + + + | Weight | 63.5 kg (140 lb) | 04/26/2020 1:39 PM | | | | | PDT | | + + + + + | Height | - | - | | + + + + + | Body Mass Index | 20.67 | 11/08/2017 1:53 PM | | | | | PST | | + + + + + documented in this encounter Progress Notes Josephine Munguia FNP - 04/26/2020 1:15 PM PDTFormatting of this note might be different f rom the original. Patient ID: Olesya Chilel is a 59 y.o. year old female Chief Complaint Patient presents with Foreign Body in Skin Left finger Assessment and Plan: 1. Foreign body in skin - finger was tender and she did not tolerate manipulation. She requested a "shot" before I performed work. After informed consent was discussed and signed. A digital block was perf ormed with 1% lidocaine without epinephrine. After numbing a small incision was placed at t he center of the crusting and a small amount of purulent discharge was expressed. Two small sliver pieces approx 1mm or less was removed. Area explored but not other foreign bodies w ere found. Area was bandaged and she was told not to soak the area until closed. 2. Infection of finger - augmentin 500-125 BID x 7 days Subjective: Olesya is here for a splinter on left hand ring finger that she sustained up at [place] approx 10 days ago. States she thinks they got some of it out but someone looked at it last night with a magnifying glass and said there was something there. It does "keep festering" and is getting tender and swelling. Review of Systems Constitutional: Negative. Skin: See above Objective: Vitals: BP 91/55 | Pulse 72 | Temp 37.1 C (98.7 F) (Oral) | Resp 17 | Wt 63.5 kg (140 lb) | SpO2 98% | BMI 20.67 kg/m Physical Exam Skin: Left hand ring finger on hernandez surface near distal tip is a small crusted sliver with surr ounding erythema lectronical ly signed by DORINA Dao at 04/26/2020 2:26 PM PDTdocumented in this encounter Plan of Treatment Not on filedocumented as of this encounter Visit Diagnoses + + | Diagnosis | + + | Foreign body in skin - Primary Other, multiple, and unspecified sites, superficial | | foreign body (splinter), without major open wound and without mention of infection | + + | Infection of finger Unspecified local infection of skin and subcutaneous tissue | + + documented in this encounter
--- OUTSIDE RECORDS SUMMARY | ~2020-06-25 | XMS | Clinical Summary ---
Demographics + + + | Address | [address] | | | [place] [address] | + + + | Home Phone | | + + + | Preferred Language | Unknown | + + + | Marital Status | | + + + | Christian Affiliation | Unknown | + + + [...] Nitesh Chilel | ECON | [address] | | | | | [place], [place] | | | | | [address] | | + + + + + Care Team Providers + +------+ + | Care Portfolio Assistant Name | Role | Phone | + +------+ + | Yasmin Perry MD | PCP | | + +------+ + Source Comments KEVIN is fully live on both [facility] and [facility] In[facility] Allergies + + + +--------+ + | [...] on file | | + + + Last Filed Vital Signs + [...] Health Maintenance | Due Date | Last | Comments | | | | Done | | + + + + + | Influenza (Flu) | | 06/12/20 | | | vaccination (#1) | 0 | 17, | | | | | 10/14/19 | | | | | 14, | | | | | 07/30/20 | | | | | 12, | | | | | Addition | | | | | al | | | | | history | | | | | exists | | + + + + + | Pneumococcal | Aged Out | | No longer eligible based on patient's age | | vaccination | | | to complete this topic | + + + + + [...] +------+ | [employer] | MODA | [id number] | | [phone] | [address] | [address] | | | [address] | | [address] | [id number] | | | | [place] | | esent | | [place], | | | | [place] | | | | [place] [address] | | + +--------+ +--------+ + +------+ [...] | [birth year] | [address] | | | al/Fam | | 1961 | [phone] | [place] | | | sunday | | | 1 (Home) | [phone] | + +--------+ +--------+ + +
--- OUTSIDE RECORDS SUMMARY | ~2020-06-25 | XMS | Clinical Summary ---
Demographics + + + | Address | [address] | | | [place] [address] | + + + | Home Phone | | + + + | Preferred Language | Unknown | + + + | Marital Status | | + + + | Spiritism Affiliation | Unknown | + + + | Race | White | + + + | Ethnic Group | Not or | + + + Author + + + | Author | [facility] | | | and [place] | + + + | Organization | [facility] | | | and [...] Team Providers + +------+ + | Care Lithostripper Name | Role | Phone | + +------+ + | Yasmin Perry MD | PCP | | + +------+ + Allergies + + + + + + | Active Allergy | Reactions | Severity | Noted | Comments | | | | | Date | | + + + + + + | Hydrocodone-Acetamin | | | | Other reaction(s): | | ophen | | | | constipation, | | | | | | nausea | + + + + + + | Hydrocodone-Acetamin | GI Upset, Nausea | | 04/26/ | Other reaction(s): | | ophen | Only | | 20 | constipation, | | | | | | nausea | + + + + + + | Morphine | | | | Other reaction(s): | | | | | | nausea, | | | | | | constipation | + + + + + + | Topiramate | | | | Other reaction(s): | | | | | | insomnia, weight | | | | | | loss | + + + + + + Medications + + + +---------+------+------+-------+ | [...] | | | + + + +---------+------+------+-------+ +---+ + | | Additional | | | InformationPatient | | | not taking. Reported | | | on 04/26/2020 1:39 | | | PM | +---+ + + + +---+---+------+---+-------+ | | Take 1 to 2 tablets | | 0 | 09/1 | | Activ | | HYDROcodone-acetamin | by mouth every 4 | | | 12/25 | | e | | ophen (NORCO) 5-325 | hours as needed for | | | 12 | | | | mg per tablet | pain | | | | | | + + +---+---+------+---+-------+ +---+ + | | Additional | | | InformationPatient | | | not taking. Reported | | | on 04/26/2020 1:39 | | | PM | +---+ + + + +---+---+------+---+-------+ | cyclobenzaprine | Take 10 mg by mouth | | 0 | 06/08 | | Activ | | (FLEXERIL) 10 mg | every 8 hours as | | | 12/25 | | e | | tablet | needed. | | | 12 | | | + + +---+---+------+---+-------+ +---+ + | | Additional | | | InformationPatient | | | not taking. Reported | | | on 04/26/2020 1:39 | | | PM | +---+ + + + +---+---+------+---+-------+ | Calcium | Take by mouth. | | 0 | | | Activ | | Carbonate-Vit D-Min | | | | 03/27 | | e | | (CALCIUM 1200 PO) | | | | 13 | | | + + +---+---+------+---+-------+ | levothyroxine | take 1 tablet by | | 0 | 07/08 | | Activ | | (SYNTHROID) 100 mcg | mouth once daily | | | 05/27 | | e | | tablet | | | | 17 | | | + + +---+---+------+---+-------+ | | take 1 tablet by | [...] | | | | | + + +---+---+------+---+-------+ | Magnesium 100 MG | Take 2,000 mg by | | 0 | | | Activ | | CAPS | mouth. | | | | | e | + + +---+---+------+---+-------+ | Ambulatory | 1 tablet. | | 0 | | | Activ | | Compound Builder | | | | | | e | + + +---+---+------+---+-------+ Active Problems + + + | Problem [...] bowel syndrome | | + + + Encounters +--------+---------+ + + + | Date | Type | Specialty | Care Team | Description | +--------+---------+ + + + | 04/26/ | Office | [facility]mediate Care | Josephine Munguia, | Foreign body in skin | | 2020 | Visit | | BIAS CUTTER HELPER | (Primary Dx); | | | | | | Infection of finger | +--------+---------+ + + + from Last 3 Months Family History + + +------+ + | [...] | + + + + + | Med Mgmt: TSH | | | | | | 0 | | | + + + + + | Medication | | | | | Management | 0 | | | + + [...] + + + + | Vaccine: Zoster (2 | | 02/10/20 | | | of 3) | 0 | 20, | | | | | 06/05/20 | | | | | 19 | | + + + + + | Vaccine: Influenza | | 06/12/20 | | | (#1) | 0 | 17, | | [...] + + + | Vaccine: | | 06/05/20 | | | Dtap/Tdap/Td (3 - | 9 | 19, | | | Td) | | 11/13/19 | | | | | 16 | | + + + + + Procedures + +--------+ + + + | Procedure Name | Priori | Date/Time | Associated Diagnosis | Comments | | | ty | | | | + +--------+ + + + | [facility]ERR[facility] | Routin | 06/23/2020 | Encounter for | Results for this | | | e | 9:18 AM | other preprocedural | procedure are in the | | | | PDT | examination | results section. | + +--------+ + + + from Last 3 Months Results [facility] Test: Darrick Covid-19 saliva (06/23/2020 9:18 AM PDT) + + + + + + | Component | Value | Ref Range | Performed | Pathologist | | | | | At | Signature | + + + + + + | Result | Comment: See Media tab | | [facility] | | | | for scanned image. | | | | + + + + + + + + | Specimen | + + | Blood | + + + + + | Narrative | Performed At | + + + | | | + + + + +---------+ + + | Performing | Address | City/State/Zipcode | Phone Number | | Organization | | | | + +---------+ + + | [facility] | | | | + +---------+ + + from Last 3 Months Insurance +-------+--------+ +--------+ + +------+ | Payer | Benefi | Subscriber | Effect | Phone | Address | Type | | | t Plan | ID | roseann | | | | | | / | | Dates | | | | | | Group | | | | | | +-------+--------+ +--------+ + +------+ | MOD[employer] | MODA | [id number] | 10/08/19 | [phone] | [address] | PPO | | | [place] | | 14[address] | [address] | [phone] | | | | [place] | | sent | | [place], | | | | [place] | | | | [place] [address] | | +-------+--------+ +--------+ + +------+ | MODA | MODA | [id number] | | [phone] | [address] | PPO | | | [address] | | [address] | [address] | [phone] | | | | [place] | | esent | | [place], | | | | [place] | | | | [place] [address] | | +-------+--------+ +--------+ + +------+ + [...] | 1961 | [phone] | [place] [address] | | | sunday | | | 1 (Home) | | + +--------+ +--------+ + + | Olesya Chilel | Person | Self | [birth year] | [address] | | | al/Fam | | 1961 | [phone] | [place] [address] | | | sunday | | | 1 (Home) | | + +--------+ +--------+ + + | Olesya Chilel | Person | Self | [birth year] | [address] | | | al/Fam | | 1961 | [phone] | [place] [address] | | | sunday | | | 1 (Home) | | + +--------+ +--------+ + + Advance Directives + + + + + | Type | Date Recorded | Patient | Explanation | | | | Occupational Therapy Professor | | + + + + + | Power of | | | | | Supervisor Shuttle Veneering | | | | + + + + + | Advance | 06/23/2020 9:03 | | | | Directive | AM | | | + + + + +
--- OUTSIDE RECORDS SUMMARY | ~2020-06-25 | XMS | Encounter Summary ---
Demographics + + + | Address | [address] | | | [place] [address] | + + + | Home Phone | | + + + | Preferred Language | Unknown | + + + | Marital Status | | + + + | Bahai Affiliation | Unknown | + + + | Race | White | + + + | Ethnic Group | Not or | + + + Author + + + | Author | [facility] | | | and [place] | + + + | Organization | [facility] | | | and [...] Team Providers + +------+ + | Care Commutator Undercutter Name | Role | Phone | + +------+ + PCP | Unavailable | + +------+ + Encounter Details +--------+ + + + + | Date | Type | Department | Care Team | Description | +--------+ + + + + | 09/05/ | Hospital | [facility] | | | | 2010 - | Encounter | MED CTR OP REHAB | | | | | | [address] | | | | 09/06/ | | [place] [address] | | | | 2010 | | [phone] | | | +--------+ + + + [...]
--- OUTSIDE RECORDS SUMMARY | ~2020-06-25 | XMS | Encounter Summary ---
Demographics + + + | Address | [address] | | | [place] [address] | + + + | Home Phone | | + + + | Preferred Language | Unknown | + + + | Marital Status | | + + + | Confucianism Affiliation | Unknown | + + + | Race | White | + + + | Ethnic Group | Not or | + + + Author + + + | Author | [facility] | | | and [place] | + + + | Organization | [facility] | | [...] Team Providers + +------+ + | Care Cashiers Bussers Food Runners Name | Role | Phone | + +------+ + PCP | Unavailable | + +------+ + Encounter Details +--------+ + + + + | Date | Type | Department | Care Team | Description | +--------+ + + + + | 10/10/ | Hospital | [facility] | | | | 2011 - | Encounter | MED CTR OP REHAB | | | | | | [address] | | | | 11/07/ | | [place] [address] | | | | 2011 | | [phone] | | | +--------+ + + + [...]
--- OUTSIDE RECORDS SUMMARY | ~2020-06-25 | XMS | Encounter Summary ---
Demographics + + + | Address | [address] | | | [place] [address] | + + + | Home Phone | | + + + | Preferred Language | Unknown | + + + | Marital Status | | + + + | Scientology Affiliation | Unknown | + + + | Race | White | + + + | Ethnic Group | Not or | + + + Author + + + | Author | [facility] | | | and [place] | + + + | Organization | [facility] | | | [...] Team Providers + +------+ + | Care Glass Edger Name | Role | Phone | + +------+ + | Agapito Clemente MD | PCP | | + +------+ + Encounter Details +--------+ + + + + | Date | Type | Department | Care Team | Description | +--------+ + + + + | 11/11/ | Hospital | [facility] | Olesya [place] | | | 2013 | Encounter | HOSPITAL XRAY [address] | [address] | | | | | KIMMY SANTANA | [address] [address], | | | | | [facility], [place] | [place] [address] | | | | | [address] | [phone] | | | | | [phone] | | | +--------+ + + + [...]
--- OUTSIDE RECORDS SUMMARY | ~2020-06-25 | XMS | Encounter Summary ---
Demographics + + + | Address | [address] | | | [place] [address] | + + + | Home Phone | | + + + | Preferred Language | Unknown | + + + | Marital Status | | + + + | Evangelical Affiliation | Unknown | + + + | Race | White | + + + | Ethnic Group | Not or | + + + Author + + + | Author | [facility] | | | and [place] | + + + | Organization | [facility] | | | [...] Team Providers + +------+ + | Care Sales Enablement Manager Name | Role | Phone | + +------+ + | Agapito Clemente MD | PCP | | + +------+ + Encounter Details +--------+ + + + + | Date | Type | Department | Care Team | Description | +--------+ + + + + | 03/09/ | [facility] | Olesya aDllas | | | 2013 | Encounter | [facility] | MD [address] | | | | | [facility] [address] | [address] [place] [address], | | | | | [address] [place] [address], | [place] [address] | | | | | [place] [address] | [phone] | | | | | [phone] | | | +--------+ + + + [...]
--- OUTSIDE RECORDS SUMMARY | ~2020-06-25 | XMS | Encounter Summary ---
Demographics + + + | Address | [address] | | | [place] [address] | + + + | Home Phone | | + + + | Preferred Language | Unknown | + + + | Marital Status | | + + + | Rastafari Affiliation | Unknown | + + + | Race | White | + + + | Ethnic Group | Not or | + + + Author + + + | Author | [facility] | | | and [place] | + + + | Organization | [facility] | | [...] Team Providers + +------+ + | Care Safety Net Maker Name | Role | Phone | + +------+ + PCP | Unavailable | + +------+ + Encounter Details +--------+ + + + + | Date | Type | Department | Care Team | Description | +--------+ + + + + | 09/19/ | Hospital | [facility] | | | | 2010 - | Encounter | [facility] | | | | | | [address] | | | | 10/07/ | | [place] [address] | | | | 2010 | | [phone] | | | +--------+ + + + [...]
--- OUTSIDE RECORDS SUMMARY | ~2020-06-25 | XMS | Encounter Summary ---
Demographics + + + | Address | [address] | | | [place] [address] | + + + | Home Phone | | + + + | Preferred Language | Unknown | + + + | Marital Status | | + + + | Lutheran Affiliation | Unknown | + + + | Race | White | + + + | Ethnic Group | Not or | + + + Author + + + | Author | [facility] | | | and [place] | + + + | Organization | [facility] | | | [...] Team Providers + +------+ + | Care Revenue Cycle Administrator Name | Role | Phone | + +------+ + PCP | Unavailable | + +------+ + Encounter Details +--------+ + + + + | Date | Type | Department | Care Team | Description | +--------+ + + + + | 03/13/ | Hospital | [facility] | Olesya [place] | | | 2013 | Encounter | [facility] | MD [address] | | | | | MEDICAL CLIN[facility] [address] | [address] [facility], | | | | | [facility], | [place] [address] | | | | | [place] [address] | [phone] | | | | | [phone] | | | +--------+ + + + [...]
--- OUTSIDE RECORDS SUMMARY | ~2020-06-25 | XMS | Encounter Summary ---
Demographics + + + | Address | [address] | | | [place] [address] | + + + | Home Phone | | + + + | Preferred Language | Unknown | + + + | Marital Status | | + + + | Shinto Affiliation | Unknown | + + + | Race | White | + + + | Ethnic Group | Not or | + + + Author + + + | Author | [facility] | + + + | Organization | [facility] | + + + | Address | Unknown | + + + | Phone | Unavailable | + + + Support + + + + + | Name | Relationship | Address | Phone | + + + + + | Nitesh Chilel | ECON | [address] | | | | | [place], [place] | | | | | [address] | | + + + + + Care Team Providers + +------+ + | Care Rackman Name | Role | Phone | + +------+ + PCP | Unavailable | + +------+ + Encounter Details +--------+ + + + + | Date | Type | Department | Care Team | Description | +--------+ + + + + | 05/28/ | Abstract | Pulmonary & | Service, Pulmonary | | | 2018 | | Critical Care | Consult [address] | | | | | Medicine at | [facility] | | | | | [facility] | Road [place], [place] | | | | | [address] | [address] | | | | | [address] [facility] | | | | | | [facility], [facility] Floor | | | | | | [place], [place] | | | | | | [address] | | | | | | [phone] | | | +--------+ + + + [...]
--- OUTSIDE RECORDS SUMMARY | ~2020-06-25 | XMS | Encounter Summary ---
Demographics + + + | Address | [address] | | | [place] [address] | + + + | Home Phone | | + + + | Preferred Language | Unknown | + + + | Marital Status | | + + + | Taoism Affiliation | Unknown | + + + | Race | White | + + + | Ethnic Group | Not or | + + + Author + + + | Author | [facility] | | | and [place] | + + + | Organization | [facility] | | [...] Team Providers + +------+ + | Care Garment Mender Name | Role | Phone | + [...] | | [place] | [place] [address] | | | | | [address] | [phone] | | | | | [phone] | | | +--------+---------+ + + + [...] by her PCP, Dr. Perry, over in [place] where the patient lives. Savannah malik documentation was reviewed. History was from the patient and also. A week ago yesterday, the patient developed irritative voiding symptoms, with dysuria, freq uency, urgency. Also had gross hematuria and/or blood on the bathroom tissue. The patient was seen at Urgent Care over in [place]. By report, the urine culture was negative. [...] therapy, a nd has even gone to [place] a couple of times for treatment there. [...] Psychiatric: Alert and oriented 3. Anxious affect 33470 PELVIC ULTRASOUND, LIMITED: Using a AMKAI Nemio XG unit, and a 3.75 MHz probe, the dania r was scanned in transverse and longitudinal planes. [...] mg twice a day for a w hoh. Urine culture pending. Eventual CMG This note was transcribed using voice recognition software; there may be speech recognition errors which escaped detection during proofreading. Cc: PRIMARY CARE PHYSICIAN: Yasmin Perry MD documented i n this encounter Miscellaneous Notes Addendum Note - Jenn Lawson CC [facility] - 10/15/2017 9:30 AM PST Addended by: Mar Lawson on: 10/15/2017 13:45 Modules accepted: Orders ddendum Note - Jenn Lawson CC [facility] - 10/15/2017 9:30 AM PST Addended by: Jenn Lawson on: 10/15/2017 13:44 Modules accepted: Orders documented in this encounter Plan of Treatment [...] + + | [place] [facility] | [address] | [place] | [phone] | | [facility] | | [address] | | + + + + + documented in this encounter Visit Diagnoses + + | Diagnosis | + + | Gross hematuria - Primary | + + documented in this encounter
--- OUTSIDE RECORDS SUMMARY | ~2020-06-25 | XMS | Encounter Summary ---
Demographics + + + | Address | [address] | | | [place] [address] | + + + | Home Phone [...] Organization | [facility] [...] Team Providers + +------+ + | Care Swimming Pool Salesperson Name | Role | Phone | + +------+ + PCP | Unavailable | + +------+ + Encounter Details +--------+ + + + + | Date | Type | Department | Care Team | Description | +--------+ + + + + | 02/18/ | Hospital | [facility] | Jones Castellanos | | | 2006 - | Encounter | MED CTR OP [facility] | MD [address] | | | | | [address] [place] | [address] [place] | | | 03/07/ | | [place] [address] | [place] [address] | | | 2006 | | [phone] | [phone] | | | | | | | [...]
--- OUTSIDE RECORDS SUMMARY | ~2020-06-25 | XMS | Encounter Summary ---
Demographics + + + | Address | [address] | | | [place] [address] | + + + | Home Phone | | + + + | Preferred Language | Unknown | + + + | Marital Status | | + + + | Buddhist Affiliation | Unknown | + + + | Race | White | + + + | Ethnic Group | Not or | + + + Author + + + | Author | [facility] | | | and [place] | + + + | Organization | [facility] | | [...] Team Providers + +------+ + | Care Technical Project Manager Name | Role | Phone | [...] | SR | | | | | [address] [facility] | | | | | | [place], [place] | | | | | | [address] | | | | | | [phone] | | | +--------+ + + + [...]
--- OUTSIDE RECORDS SUMMARY | ~2020-06-25 | XMS | Encounter Summary ---
Demographics + + + | Address | [address] | | | [place] [address] | + + + | Home Phone | | + + + | Preferred Language | Unknown | + + + | Marital Status | | + + + | Temple Affiliation | Unknown | + + + | Race | White | + + + | Ethnic Group | Not or | + + + Author + + + | Author | [facility] | | | and [place] | + + + | Organization | [facility] | | [...] Team Providers + +------+ + | Care School Operations Manager Name | Role | Phone | [...] [place] | | | | | [place], [place] | [place] [address] | | | | | [address] | [phone] | | | | | [phone] | | | +--------+ + + + [...] was used for local anesthesia. A 17 Chinese scope was passed. The bl adder was [...] | 500 mg 500 mg, Oral, ONCE, Sun | | 18 4:13 | | | [...]
--- OUTSIDE RECORDS SUMMARY | ~2020-06-25 | XMS | Encounter Summary ---
Demographics + + + | Address | [address] | | | [place] [address] | + + + | Home Phone | | + + + | Preferred Language | Unknown | + + + | Marital Status | | + + + | Mosque Affiliation | Unknown | + + + | Race | White | + + + | Ethnic Group | Not or | + + + Author + + + | Author | [facility] | | | and [place] | + + + | Organization | [facility] | | | [...] Team Providers + +------+ + | Care Shank Boner Name | Role | Phone | + +------+ + | Agapito Clemente MD | PCP | | + +------+ + Reason for Visit + +--------+ + | Reason | Onset | Comments | | | Date | | + +--------+ + | Appointment | 11/14/ | | | | 2013 | | + +--------+ + Encounter Details +--------+ + + + + | Date | Type | Department | Care Team | Description | +--------+ + + + + | 11/14/ | Telephone | [facility] | Eb Garcias MD | Appointment | | 2013 | | NEUR[address]UR[address]ERY [address] | [address] | | | | | [address] [facility] [address] | [place] [address] | | | | | [place] | [phone] | | | | | [address] | | | | | | [phone] | | | +--------+ + + + [...] + + documented as of this encounter Miscellaneous Notes Telephone Encounter - Mariah Lilly - 11/14/2013 12:31 PM PSTCalled Olesya to schedule. She would like to speak to her first. She will callback to schedule when ready. MARIAH LILLY elephone Encounter - Apryl Horner - 11/14/2013 9:34 AM PSTPatient called in returning Cici call to alonzo woodse an appointment, please advise. documented in this encounter Plan of Treatment Not on filedocumented as of this encounter Visit Diagnoses Not on filedocumented in this encounter"
--- OUTSIDE RECORDS SUMMARY | ~2020-06-25 | XMS | Encounter Summary ---
Demographics + + + | Address | [address] | | | [place] [address] | + + + | Home Phone [...] + + + | Author | [facility] | | | and [place] | + + + | Organization | [facility] | | [...] Team Providers + +------+ + | Care Mechanical Striper Name | Role | Phone | + +------+ + PCP | Unavailable | + +------+ + Encounter Details +--------+ + + + + | Date | Type | Department | Care Team | Description | +--------+ + + + + | 12/25/ | Hospital | [facility] | Darrius Miner, | | | 2007 | Encounter | [address] | MD [address] | | | | | [address] | [place], [place] | | | | | [place], [place] | [address] | | | | | [address] | [phone] | | | | | [phone] | | | +--------+ + + + [...]
[~2020-06-25 09:50] MED LIST changes: +NORCO 7.5-3251 EACH PO
[2020-06-25] MEDS ORDERED: ONDANSETRON ODT8 MG PO (11:18)
[2020-06-25] MEDS ORDERED: NORCO 7.5-3251 EACH PO (11:18)
== END 2020-06-25 12:47 | disposition home or self-care (01) ==
LOC: ED 09:50
DX: S52.501A Unspecified fracture of the lower end of right radius, initial encounter for closed fracture (principal); S52.601A Unspecified fracture of lower end of right ulna, initial encounter for closed fracture; S62.101A Fracture of unspecified carpal bone, right wrist, initial encounter for closed fracture; W01.0XXA Fall on same level from slipping, tripping and stumbling without subsequent striking against object, initial encounter; Z79.899 Other long term (current) drug therapy
CPT/HCPCS: 29125; 73110; 99283-25; A9270; J1170; J2405; J3010; J7040